=== PATIENT | female | born 1990 | race Caucasian/White ===

== ENCOUNTER 2020-11-02 08:55 | Outpatient (REF) | payer OTHER, SELFPAY ==
[2020-11-02 11:11] LABS: MANUAL DIFF FLAG NO
[2020-11-02 11:37] LABS: Basophils Percent Auto 0.6 % (0-2); Eosinophils Absolute Auto 0.1 X10*3/uL (0.0-0.4); Eosinophils Percent Auto 2.8 % (0-4); Hematocrit 40.6 % (37-47); Imm Gran Abs Auto 0.01 X10*3/uL (0.00-0.03); Imm Gran Pct Auto 0.2 % (0.0-0.4); Lymphocytes Absolute Auto 1.8 X10*3/uL (1.2-4.9); Lymphocytes Percent Auto 35.6 % (20-40); Mean Corpuscular Hemoglobin 30.4 pg (27.0-33.0); Mean Corpuscular Volume 95.1 fL (80-98); Mean Platelet Volume 10.3 fL (9.4-12.3); Monocytes Absolute Auto 0.3 X10*3/uL (0.1-1.2); Monocytes Percent Auto 5.5 % (2-11); Neutrophils Absolute Auto 2.8 X10*3/uL (2.0-8.3); Neutrophils Percent Auto 55.3 % (45-73); Platelet Count 251 X10*3/uL (160-400); Red Blood Count 4.27 X10*6/uL (4.20-5.50); Red Cell Distribution Width 11.8 % (11.0-16.0); White Blood Count 5.1 X10*3/uL (4.8-10.8)
[2020-11-02 11:44] LABS: Alanine Aminotransferase 13 U/L (0-31); Alkaline Phosphatase 44 U/L (39-117); Aspartate Amino Transferase 21 U/L (5-31); Bilirubin Total 0.7 mg/dL (0.0-1.0); Blood Urea Nitrogen 15 mg/dL (9-16); Cholesterol 158 mg/dL; Estimated Glomerular Filt Rate > 60; HDL Cholesterol 52 mg/dL
[2020-11-02 11:47] LABS: Chloride 105 mmol/L (96-108); Sodium 140 mmol/L (135-145)
[2020-11-02 11:49] LABS: Albumin Level 4.5 g/dL (3.5-5.0); Anion Gap 11 (12-20); Carbon Dioxide 28 mmol/L (22-29); Glucose Fasting 81 mg/dL (60-99); LDL Cholesterol Calculated 96 mg/dl; Total Protein 6.9 g/dL (6.5-8.0); Triglycerides 51 mg/dL
[2020-11-02 12:03] LABS: TSH reflex Free T4 2.18 uIU/mL (0.32-4.0)
== END 2020-11-02 08:56 | disposition home or self-care (01) ==
LOC: HO.HMGCLDS 08:55
PROVIDERS: PCP Nurse Practitioner Family; Visit Provider Internal Medicine Medical Oncology
DX: Z01.419 Encounter for gynecological examination (general) (routine) without abnormal findings (principal); C41.9 Malignant neoplasm of bone and articular cartilage, unspecified; L68.0 Hirsutism; F41.9 Anxiety disorder, unspecified; E78.2 Mixed hyperlipidemia; Z97.5 Presence of (intrauterine) contraceptive device
CPT/HCPCS: 36415; 80053; 80061; 84443; 85025; 99395

== ENCOUNTER → 2020-12-07 14:59 | Outpatient (REF) | payer OTHER, SELFPAY ==
--- NOTE | 2020-12-07 15:01 | CA_ITS ---
Transthoracic Echocardiogram Patient (Last, First, Middle): Oliva Hernandez, Gender: Female Date of : 1990 Age: 30 Procedure Date: 12/07/2020 Procedure Type: Transthoracic Echocardiogram Location: OP Height: 162.56 cm Weight: 58.51 kg BSA: 1.62 m2 Heart Rate: bpm BP: 122 / 80 mmHg Deck Worker: BEST Bliss MD: Petey Mora [facility] Black Off Worker: Jas Siddiqi MD Symptoms: R01.1 - Cardiac murmur, unspecified Study Quality: Fair ECG Rhythm: Sinus Conclusions: - Essentially normal study with trace to mild mitral regurgitation Findings Left Ventricle Normal left ventricular size, thickness, and systolic function. The visually estimated ejection fraction is between 60-65%. Diastolic function is normal for age. Right Ventricle Normal right ventricular cavity size and systolic function. Atria Both atria are normal in size. There is no evidence of interatrial shunt. Aortic Valve Normal aortic valve structure and function. There is no aortic valve stenosis. There is no aortic valve regurgitation. Mitral Valve There is mild anterior mitral leaflet thickening. There is mild mitral valve regurgitation. There is no mitral valve stenosis. Pulmonic Valve The pulmonic valve was not well visualized. Tricuspid Valve Likely normal tricuspid valve structure and function. There is trace tricuspid valve regurgitation. The right ventricular systolic pressure is normal. The right ventricular systolic pressure is 20 mmHg. Normal right atrial pressure. There is no evidence of pulmonary hypertension. Great Vessels All visible segments of the aorta are normal in size. The pulmonary artery was not well visualized. Venous The inferior vena cava is normal in size and collapses greater than 50% with inspiration. Pericardium/Pleural There is no evidence of pericardial effusion. Prior Study Comparison No significant change compared to prior study dated: 10/16/2019. Measurements 2D Linear Measurements IVSd: 0.79 0.6-0.9/0.6-1.0 cm LVIDd: 4.33 3.9-5.3/4.2-5.9 cm LVIDd Index: 2.67 2.4-3.2/2.2-3.1 cm/m2 LVIDs: 2.84 2.0-3.6 cm LVPWd: 0.72 0.7-1.1 cm Ao Root: 2.50 2.1-3.5 cm LA Diam: 2.90 2.7-3.8/3.0-4.0 cm LAIDs Index: 1.79 1.5-2.3 cm/m2 LV Mass: 122.18 67-162/88-224 g LV Mass Index: 75.42 43-95/49-115 g/m2 LVOT Diam: 1.90 3.0+(-)1.3 cm Mitral Valve MV Pk E: 1.09 MV PK A: 0.67 MV Decel Time: 296.00 E/A: 1.60 E'Lateral: 17.40 E'Medial: 12.20 E/E' Med: 8.90 E/E' Lat: 6.30 PHT: 87.00 MVA PHT: 2.53 Decel Mason: 3.69 Aortic Valve AoV Pk Oliver: 1.42 AoV Mn Oliver: 1.03 AoV VTI: 0.31 AoV Pk Grad: 8.00 Aov Mn Grad: 5.00 MENDY Cont.VTI: 2.60 LVOT LVOT Pk Oliver: 1.41 LVOT Mn Oliver: 0.88 LVOT VTI: 0.28 LVOT Pk Grad: 8.00 LVOT Mn Grad: 4.00 LVOT Diam: 1.90 LVOT Area: 2.84 Diastolic Function MV Pk E: 1.09 MV Pk A: 0.67 E/A: 1.60 E'Medial: 12.20 E/E' Med: 8.90 E' Laterial: 17.40 E/E' Lat: 6.30 Tricuspid Valve TR Pk Oliver: 2.06 TR Pk Grad: 17.00 RA Press: 3.00 RVSP: 20.00 Great Vessels Aorta Ao Root-2D: 2.50 2.0-3.7 cm Ao Asc: 2.60 2.1-3.4 cm Ao Arch: 2.40 Updated in Other Vendor System with Status of Final Jas Siddiqi MD electronically signed on 12/08/2020 5:29:21 PM with status of Final
== END ==
LOC: HO.CARD 14:59
PROVIDERS: Visit Provider Nurse Practitioner Family
DX: R01.1 Cardiac murmur, unspecified (principal)
CPT/HCPCS: 93306

== ENCOUNTER 2022-01-22 15:05 | Outpatient (REF) | payer OTHER, SELFPAY ==
--- NOTE | ~2022-01-22 | US_ITS ---
EXAMINATION: US VENOUS ULTRASOUND WITH DOPPLER LOWER EXTREMITY, LEFT CLINICAL INFORMATION: Edema COMPARISON: None TECHNIQUE: Ultrasound of the deep veins is performed from the hip to the calf with compression sonography and color and pulse Doppler assessment. Spectral analysis with color-flow imaging is performed. FINDINGS: There is normal venous compression and respiratory variation and augmented flow. The visualized common femoral vein, superficial femoral vein, profunda femoral vein, popliteal vein, and the trifurcation region shows no evidence of deep venous thrombosis. There is no significant popliteal fossa cyst. There is a collection deep to the subcutaneous fat overlying the musculature of the proximal/mid thigh site of the previous surgical procedure. If the patient's symptoms persist, followup ultrasound in 5 days 7 days might be of value to exclude proximal propagation from a non-visualized calf vein. US/US venous duplex LE LT IMPRESSION: No DVT demonstrated in the left lower extremity.
== END 2022-01-22 15:06 | disposition home or self-care (01) ==
LOC: HO.US 15:05
PROVIDERS: Visit Provider Nurse Practitioner Family
DX: R60.0 Localized edema (principal)
CPT/HCPCS: 93971

== ENCOUNTER → 2022-01-29 09:32 | Outpatient (BNVA) | payer OTHER, SELFPAY | PROVIDERS: PCP Nurse Practitioner Family; Visit Provider Surgery Vascular Surgery | DX: I83.12 Varicose veins of left lower extremity with inflammation (principal) ==

== ENCOUNTER 2022-03-14 07:34 | Outpatient (REF) | payer OTHER, SELFPAY ==
[2022-03-14 11:23] LABS: MANUAL DIFF FLAG NO
[2022-03-14 11:27] LABS: Appearance Urine CLEAR; Color Urine YELLOW; Glucose Urine UA NEG (NEG); Leukocyte Esterase Urine TRACE (NEG); Nitrite Urine NEG (NEG); PH 6.5 (5.0-8.0); Urine Blood NEG (NEG); Urine Ketones NEG (NEG); Urine Protein NEG (NEG-TRACE)
[2022-03-14 11:32] LABS: Basophils Percent Auto 0.6 % (0-2); Eosinophils Absolute Auto 0.2 X10*3/uL (0.0-0.4); Eosinophils Percent Auto 2.9 % (0-4); Hematocrit 40.9 % (37.0-47.0); Hemoglobin 13.4 g/dl (12.0-16.0); Imm Gran Abs Auto 0.01 X10*3/uL (0.00-0.03); Imm Gran Pct Auto 0.2 % (0.0-0.4); Lymphocytes Percent Auto 39.3 % (20-40); Mean Corpuscular HGB Conc 32.8 g/dl (31.0-35.0); Mean Corpuscular Hemoglobin 30.2 pg (27.0-33.0); Mean Corpuscular Volume 92.3 fL (80.0-98.0); Mean Platelet Volume 9.9 fL (9.4-12.3); Monocytes Absolute Auto 0.4 X10*3/uL (0.1-1.2); Monocytes Percent Auto 7.8 % (2-11); Neutrophils Absolute Auto 2.5 x10*3/uL (2.0-8.3); Neutrophils Percent Auto 49.2 % (45-73); Platelet Count 270 X10*3/uL (160-400); Red Blood Count 4.43 X10*6/uL (4.20-5.50); White Blood Count 5.1 X10*3/uL (4.8-10.8)
[2022-03-14 11:48] LABS: Bacteria Urine TRACE /LPF; RBC Urine 0 /HPF (0); Squamous Epithelial Cell Urine 3+ /LPF; WBC Urine 0-2 /HPF (0-4)
[2022-03-14 11:59] LABS: Alanine Aminotransferase 14 U/L (0-31); Albumin Level 4.4 g/dL (3.5-5.0); Alkaline Phosphatase 45 U/L (39-117); Anion Gap 13 (12-20); Aspartate Amino Transferase 18 U/L (5-31); Bilirubin Total 0.6 mg/dL (0.0-1.0); Blood Urea Nitrogen 14 mg/dL (9-16); Calcium 9.3 mg/dL (8.4-10.2); Carbon Dioxide 28 mmol/L (22-29); Chloride 104 mmol/L (96-108); Cholesterol 180 mg/dL; Estimated Glomerular Filt Rate > 60; Glucose Fasting 88 mg/dL (60-99); HDL Cholesterol 57 mg/dL; LDL Cholesterol Calculated 110 mg/dl; Potassium 3.8 mmol/L (3.3-5.1); Sodium 141 mmol/L (135-145); Total Protein 6.9 g/dL (6.5-8.0); Triglycerides 66 mg/dL
[2022-03-14 12:07] LABS: TSH reflex Free T4 2.43 uIU/mL (0.32-4.0)
== END 2022-03-14 07:35 | disposition home or self-care (01) ==
LOC: HO.HMGCLDS 07:34
PROVIDERS: Visit Provider Nurse Practitioner Family
DX: Z00.00 Encounter for general adult medical examination without abnormal findings (principal)
CPT/HCPCS: 36415; 80053; 80061; 81001; 84443; 85025

== ENCOUNTER 2022-05-02 08:01 | Outpatient (REF) | payer OTHER, SELFPAY ==
--- NOTE | ~2022-05-02 | US_ITS ---
EXAMINATION: US LOWER EXTREMITY VENOUS (REFLUX EXAM), BILATERAL CLINICAL INDICATION: This a 31-year-old female with venous insufficiency and varicose veins. COMPARISON: None. TECHNIQUE: Color flow triplex imaging and compression Doppler was performed to evaluate both the deep and the superficial systems bilaterally. To evaluate the superficial system, the examination was performed in the upright position. Color-flow Doppler ultrasound and compression ultrasound were utilized. In addition, maneuvers were utilized to demonstrate reflux. FINDINGS: 1. DEEP VENOUS ULTRASOUND OF THE RIGHT LOWER EXTREMITY: Common Femoral Vein: Compressible, normal respiratory variation and augmented flow. Femoral vein: Compressible, normal color flow and augmentation. Popliteal Vein: Compressible, normal augmentation. Deep Reflux: There is no evidence of reflux in the deep system in either the common femoral vein or the popliteal vein. There is no evidence of a Castro's cyst. 2. SUPERFICIAL ULTRASOUND WITH DOPPLER OF RIGHT LOWER EXTREMITY: GREAT SAPHENOUS VEIN: Saphenofemoral Junction: 0.8 cm. No reflux is seen. The proximal thigh vein segment measures 0.5 cm with reflux time is 1159 ms. Mid Thigh: 0.4 cm. The reflux time is 680 ms. Above Knee: 0.4 cm. The reflux time is 2972 ms. Below Knee: 0.3 cm. The reflux time is 2292 ms. Mid Calf: 0.4 cm. The reflux time is 2880 ms. Ankle: 0.2 cm. There is no reflux. GSV REFLUX: There is reflux present in the great saphenous vein for DUPLICATED GREAT SAPHENOUS VEIN: There is a 0.2 cm duplicated lateral great saphenous vein without reflux. SMALL SAPHENOUS VEIN: Proximal: 0.1 cm Distal: 0.1 cm SSV REFLUX: No evidence of reflux. VEIN OF GIACOMINI: None Imaged. 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 VARICOSITIES: There are 0.3 cm mid calf varicose veins with greater than 2 seconds of reflux. 3. DEEP VENOUS ULTRASOUND OF THE LEFT LOWER EXTREMITY: Common Femoral Vein: Compressible, normal respiratory variation and augmented flow. Femoral Vein: Compressible, normal color flow and augmentation. Popliteal Vein: Compressible, normal augmentation. Deep Reflux: There is no evidence of reflux in the deep system in either the common femoral vein or the popliteal vein. There is no evidence of a Castro's cyst. 4. SUPERFICIAL ULTRASOUND WITH DOPPLER OF LEFT LOWER EXTREMITY: GREAT SAPHENOUS VEIN: Saphenofemoral Junction: 0.6 cm. There is no reflux. Mid Thigh: 0.3 cm Above Knee: 0.2 cm Below Knee: 0.2 cm Mid Calf: 0.1 cm. There is no reflux at this level and above. Ankle: 0.1 cm. The reflux time is 1007 and 64 ms per GSV REFLUX: There is only distal reflux present. DUPLICATED GREAT SAPHENOUS VEIN: There is a 0.3 cm duplicated lateral great saphenous vein without reflux. SMALL SAPHENOUS VEIN: Proximal: 0.2 cm Distal: 0.1 cm SSV REFLUX: No evidence of reflux. VEIN OF GIACOMINI: None Imaged. PERFORATORS: None Imaged VARICOSITIES: None Imaged US/US venous duplex LE BI IMPRESSION: 1. There is a patent right great saphenous vein with reflux present as described. 2. There is a patent right small saphenous vein without reflux. 3. There are 0.3 cm varicose veins in the right calf with reflux. 4. There is a patent left great saphenous vein with only distal reflux. 5. There is a patent left small saphenous vein without evidence of reflux. 6. Known left-sided varicose veins were imaged.
== END 2022-05-02 08:02 | disposition home or self-care (01) ==
LOC: HO.US 08:01
PROVIDERS: Visit Provider Nurse Practitioner Family
DX: I83.12 Varicose veins of left lower extremity with inflammation (principal)
CPT/HCPCS: 93970

== ENCOUNTER 2022-07-20 08:28 | Outpatient (REF) | payer OTHER, SELFPAY ==
--- NOTE | ~2022-07-20 | US_ITS ---
EXAMINATION: US THYROID CLINICAL INFORMATION: Nontoxic multinodular goiter. COMPARISON: Ultrasound soft tissue head/neck thyroid dated 10/06/2019. TECHNIQUE: Linear transducer grayscale and color Doppler examination with attention to the region of the thyroid. FINDINGS: SIZE: Measurements of the thyroid lobes and nodules are given in sagittal, anteroposterior and transverse dimensions respectively. Right Thyroid Lobe: 4.83 x 1.66 x 1.73 cm, volume 7.24 mL. Previously 4.93 x 1.65 x 1.74 cm, volume 7.40 mL. Parenchyma: The gland echotexture is heterogeneous. Thyroid vascularity is increased. Left Thyroid Lobe: 5.08 x 1.19 x 1.45 cm, volume 4.58 mL. Previously 4.40 x 1.49 x 1.54 cm, volume 5.28 mL. Parenchyma: The gland echotexture is heterogeneous. Thyroid vascularity is increased. Isthmus: 0.66 cm in maximum AP dimension. Previously 0.67 cm. Estimated total number of nodules greater than or equal to 1 cm: 0. Beater Room Supervisor nodules are described as follows: 1. Location: Isthmus. Size: 0.73 x 0.45 x 0.51 cm, volume 0.09 mL. Previously: 0.60 x 0.56 x 0.54 cm, volume 0.09 mL. Nodule characteristics: Composition: Solid/almost completely solid (2). Echogenicity: Hypoechoic (2). Shape: Not taller than wide (0). Margins: Ill-defined (0). Echogenic Foci: None (0). ACR TI-RADS total points: 4 ACR TI-RADS category: 4 Significant change in size (>/= 20% in 2 dimensions and minimal increase of 2 mm or 50% or greater increase in volume): No Change in features: No Change in ACR TI-RADS risk category: Not applicable. NODES: No lymphadenopathy is seen in the tissue surrounding the thyroid gland. US/US thyroid IMPRESSION: Again noted heterogeneous and hypervascular thyroid limiting assessment of small nodules and parenchymal details. Accounting for this limitation, a 0.7 cm nodule in the isthmus, TR 4, is not significantly changed when compared to 09/26/2019, and according to the ACR guidelines below, no further evaluation of this nodule is recommended. However, given background of significant heterogeneity, continue to follow up by imaging is recommended following clinical guidelines. ACR TI-RADS RECOMMENDATION REFERENCE: Ultrasound-guided fine-needle aspiration, followup ultrasound, no further follow up. * TR1 (0 point) and TR 2 (2 points): No FNA or follow up * TR3 (3 points): FNA if more than or equal to 2.5 cm in maximum dimension, followup ultrasound in 1, 3 and 5 years if 1.5 to 2.4 cm in maximum dimension. * TR4 (4-6 points): FNA if more than or equal to 1.5 cm in maximum dimension, followup ultrasound in 1, 2, 3 and 5 years if 1 to 1.4 cm in maximum dimension. * TR5 (more than or equal to 7 points): FNA if more than or equal to 1 cm in maximum dimension, followup ultrasound every year for 5 years if 0.5 to 0.9 cm in maximum dimension. * TR3, TR4 or TR5 nodules that are below the size threshold for follow up receive no follow up.
== END 2022-07-20 08:29 | disposition home or self-care (01) ==
LOC: HO.HMGCX 08:28
PROVIDERS: PCP Nurse Practitioner Family; Visit Provider Internal Medicine Endocrinology, Diabetes & Metabolism
DX: E04.2 Nontoxic multinodular goiter (principal)
CPT/HCPCS: 76536

== ENCOUNTER 2022-11-28 08:20 | Outpatient (REF) | payer OTHER, SELFPAY ==
[2022-11-28 11:15] LABS: MANUAL DIFF FLAG NO
[2022-11-28 11:19] LABS: Basophils Percent Auto 0.6 % (0-2); Eosinophils Absolute Auto 0.1 X10*3/uL (0.0-0.4); Eosinophils Percent Auto 2.6 % (0-4); Hematocrit 41.3 % (37.0-47.0); Hemoglobin 13.6 g/dl (12.0-16.0); Immature Retic Fraction 5.1 % (3.0-15.9); Lymphocytes Absolute Auto 1.8 X10*3/uL (1.2-4.9); Lymphocytes Percent Auto 39.1 % (20-40); Mean Corpuscular HGB Conc 32.9 g/dl (31.0-35.0); Mean Corpuscular Hemoglobin 30.4 pg (27.0-33.0); Mean Corpuscular Volume 92.2 fL (80.0-98.0); Monocytes Absolute Auto 0.4 X10*3/uL (0.1-1.2); Monocytes Percent Auto 7.7 % (2-11); Neutrophils Absolute Auto 2.3 x10*3/uL (2.0-8.3); Platelet Count 293 X10*3/uL (160-400); Red Blood Count 4.48 X10*6/uL (4.20-5.50); Retic HGB Equivalent 36.4 pg (30.0-35.0); Reticulocyte Percent 0.9 % (0.5-1.8); White Blood Count 4.7 X10*3/uL (4.8-10.8)
[2022-11-28 11:43] LABS: Appearance Urine Clear; Color Urine Yellow; Glucose Urine UA Negative (Negative); Leukocyte Esterase Urine Negative (Negative); Nitrite Urine Negative (Negative); PH 6.5 (5.0-9.0); Urine Blood Negative (Negative); Urine Ketones Negative (Negative); Urine Protein Negative (Neg-Trace)
[2022-11-28 11:56] LABS: Alanine Aminotransferase 11 U/L (0-31); Albumin Level 4.4 g/dL (3.5-5.0); Alkaline Phosphatase 47 U/L (39-117); Anion Gap 13 (12-20); Aspartate Amino Transferase 21 U/L (5-31); Bilirubin Total 0.7 mg/dL (0.0-1.0); Blood Urea Nitrogen 16 mg/dL (9-16); Calcium 9.6 mg/dL (8.4-10.2); Carbon Dioxide 26 mmol/L (22-29); Chloride 107 mmol/L (96-108); Estimated Glomerular Filt Rate > 60; Glucose Random 65 mg/dL (60-115); Iron 95 mcg/dL (30-160); Percent Iron Saturation 40 % (15-50); Potassium 4.4 mmol/L (3.3-5.1); Sodium 142 mmol/L (135-145); Total Iron Binding Capacity 235 mcg/dL (228-428); Total Protein 6.7 g/dL (6.5-8.0); Unsaturated Iron Binding 140 ug/dL
[2022-11-28 12:07] LABS: Ferritin 45 ng/mL (10-122); Folate 16.4 ng/mL (> or = 4.0); TSH reflex Free T4 2.45 uIU/mL (0.32-4.0); Vitamin B12 511 pg/mL (200-900)
== END 2022-11-28 08:21 | disposition home or self-care (01) ==
LOC: HO.HMGCLDS 08:20
PROVIDERS: PCP Nurse Practitioner Family; Visit Provider Nurse Practitioner Family
DX: R53.83 Other fatigue (principal)
CPT/HCPCS: 36415; 80053; 81003; 82607; 82728; 82746; 83540; 84443; 85025; 85045

== ENCOUNTER 2023-03-07 07:29 | Outpatient (AMB) | payer OTHER, SELFPAY ==
[2023-03-07 07:37] VITALS: BP 120/74; PULSE 94; O2SAT 100; BMI 22.2
--- NOTE | 2023-03-07 07:37 | MHC.PC.OV ---
Vital Signs 03/07/23 07:37 Height 5 ft 4 in Weight 129 lb 6 oz BMI 22.2 BP 120/74 Blood Pressure Location Rt brachial Position Sitting Pulse 94 Pulse Source Pulse Oximeter Pulse Oximetry (%) 100 Oxygen Delivery Method Room Air Intake Visit Reasons: Annual Appointment Allergies No Known Allergies [No Known Allergies*] Allergy (Verified 03/07/23 07:48) Medication List - Last Reconciled 03/07/23 by MEKA Jackson dextroamphetamine-amphetamine 10 mg 10 mg PO DAILY PRN dextroamphetamine-amphetamine 25 mg ER 25 mg PO QAM iron fum,ct-wkocl-Aqyoj,C no.9 125 mg iron- 1 mg (Folivane-Plus) 1 cap PO DAILY levonorgestrel (Mirena) intrauterine multivitamin with iron (Daily Multiple Vitamins with Iron tablet) 1 tab PO DAILY ondansetron HCl 4 mg PO Q8H 30 days Tobacco use date assessed: 03/07/23 HPI Annual Appointment HPI Details Pt is here for a PE. Will order labs. 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 [facility] Medical History (Updated 11/21/22 @ 07:33 by MEKA Jackson) Anxiety IBS (irritable bowel syndrome) Mixed hyperlipidemia Multinodular goiter (nontoxic) Osteogenic sarcoma Surgical History History of biopsy (12/12/21) History of surgery History of surgery History of surgery Family History Father HTN (hypertension) Mother Glaucoma Anxiety Maternal Grandfather No problems noted. Maternal Grandmother Alzheimer's disease Dementia Paternal Grandfather Stroke Paternal Grandmother Stroke Brother No problems noted. Social History Housing: House Alcohol intake: current Alcohol intake frequency: holidays/special occasions only Patient Tobacco Use Status: Never used Tobacco e-Cigarette/Vaping Use: Currently Using (thc) Second Hand Smoke Exposure: No service: No Current occupational status: employed Current occupation: [employer] Current occupational exposures/hazards: Yes Cognitive needs: No Hearing needs: No Vision needs: No Questionnaire Thrive Questionnaire Date Thrive assessed: 02/28/22 I am a: Patient What is your living situation today?: I have a steady place to live Within the past 12 months, did the food you bought not last and you didn't have the money to get more?: Never true Within the past 12 months, did you worry whether your food would run out before you got money to buy more?: Never true AUDIT C Alcohol Use Questionnaire (AUDIT-C) 1. How often do you have a drink containing alcohol?: Monthly or less 2. How many drinks containing alcohol do you have on a typical day when you are drinking?: 1 or 2 3. How often do you have six or more drinks on one occasion?: Never Total Score: 1 MINA-7 AMB Questionnaire MINA-7 Date MINA - 7 assessed: 02/28/22 Feeling nervous, anxious, or on edge: 3 = Nearly every day Not being able to stop or control worryin = Several days Worrying too much about different things: 3 = Nearly every day Trouble relaxin = Nearly every day Being so restless that it is hard to sit still: 3 = Nearly every day Becoming easily annoyed or irritable: 1 = Several days Feeling afraid as if something awful might happen: 0 = Not at all Total MINA-7 score (0-4 normal; 5-9 mild; 10-14 moderate; 15-21 severe): 14 Source: Developed by Drs. Gurmeet Linder, Indai Gates, Chris Choudhury and colleagues, with an educational ruby from [employer]. Review of Systems Const Denies chills and Denies fever(s) Eyes Denies blurry vision ENT Denies vertigo, Denies dizziness and Denies sore throat Card Denies chest pain at rest, Denies chest pain with activity, Denies diaphoresis, Denies dyspnea and Denies dyspnea on exertion Resp Denies cough, Denies dyspnea, Denies dyspnea on exertion and Denies wheezing GI Denies abdominal pain, Denies melena, Denies hematochezia, Denies constipation, Denies diarrhea and Denies loose stools Denies hematuria Musc Denies numbness and Denies tingling Skin/Breast Denies lesions Neuro Denies vertigo, Denies dizziness, Denies numbness and Denies tingling Psych Denies anxiety, Denies depression, Denies homicidal ideation, Denies suicidal ideation and Denies other (substance abuse) Aller/Immun Denies wheezing Physical exam (Primary Care) Vital Signs: Last Vital Signs Pulse 94 03/07/23 07:37 BP 120/74 03/07/23 07:37 Pulse Ox 100 03/07/23 07:37 Oxygen Delivery Method Room Air 03/07/23 07:37 BMI result Body Mass Index 22.2 Tobacco/Smoking Status: Tobacco use Status Tobacco use date assessed 03/07/23 03/07/23 07:50 Patient Tobacco Use Status Never used Tobacco 03/07/23 07:50 e-Cigarette/Vaping Use Currently Using (thc) 03/07/23 07:50 Thrive Assessment: Date of Thrive Assessment Date Thrive assessed 02/28/22 03/07/23 07:50 Const General: cooperative Nutritional Appearance: well nourished Orientation/consciousness: patient oriented x3 HENMT Head: Yes normal to inspection, Yes normocephalic and Yes atraumatic Ears: TM's normal bilaterally Eyes General: appearance normal, both eyes and all related structures Alignment and Position: alignment normal and position normal Neck Neck: Yes normal visual inspection and Yes no lymphadenopathy Thyroid: Thyroid normal Resp Effort & Inspection: normal respiratory effort Auscultation: clear to auscultation bilaterally Cardio Rate: regular rate Rhythm: regular rhythm Heart sounds: S1 normal heart sound present, S2 normal heart sound present and Murmur heart sound present systolic GI Palpation (GI): Soft to palpation and nontender Auscultation: normal bowel sounds Skin Rashes: no rashes Neuro General: patient oriented x3, moves all extremities, no focal motor deficits and deep tendon reflexes 2+ bilaterally Romberg Test: Negative Psych Appearance: grossly normal Mental Status: mental status grossly normal Speech and movement: Normal speech and movement present Affect: normal affect Attitude: cooperative Thought process: Normal thought process present Thought content: Normal thought content present Insight: Good insight present (Psych) Judgement: Good judgement present (Psych) Assessment and Plan Assessment & Plan (1) Physical exam: Code(s): Z00.00 - Encounter for general adult medical examination without abnormal findings Plan: Labs ordered Plan The patient agreed to the use of a medical assisting instructor for this encounter. Scribed for MEKA Aleman by Floresita Armin, medical assisting instructor, on 03/07/2023 at 07:55 EST. Orders: Orders Comprehensive [place]. Panel Fast Today Z00.00 - Encounter for general adult medical examination without abnormal findings Lipid Panel Today Z00.00 - Encounter for general adult medical examination without abnormal findings TSH reflex Free T4 Today Z00.00 - Encounter for general adult medical examination without abnormal findings Complete Blood Count Auto Diff Today Z00.00 - Encounter for general adult medical examination without abnormal findings UA CC w/rflx Micro + Cult Today Z00.00 - Encounter for general adult medical examination without abnormal findings Coding Level of Care Code Est Pt Prev Care 18-39y(91152) Diagnoses Physical exam Z00.00
== END 2023-03-07 08:04 | disposition home or self-care (01) ==
PROVIDERS: Visit Provider Nurse Practitioner Family
DX: Z00.00 Encounter for general adult medical examination without abnormal findings (principal)
CPT/HCPCS: 99395

== ENCOUNTER 2023-05-03 08:30 | Outpatient (REF) | payer OTHER, SELFPAY ==
[2023-05-03 11:32] LABS: MANUAL DIFF FLAG NO
[2023-05-03 11:35] LABS: Appearance Urine Clear; Color Urine Yellow; Glucose Urine UA Negative (Negative); Leukocyte Esterase Urine Negative (Negative); Nitrite Urine Negative (Negative); Specific Gravity - Urine 1.025 (1.005-1.025); Urine Blood Negative (Negative); Urine Ketones Negative (Negative); Urine Protein Negative (Neg-Trace)
[2023-05-03 11:46] LABS: Basophils Percent Auto 0.5 % (0-2); Eosinophils Absolute Auto 0.1 X10*3/uL (0.0-0.4); Eosinophils Percent Auto 2.4 % (0-4); Hematocrit 42.5 % (37.0-47.0); Hemoglobin 13.8 g/dl (12.0-16.0); Imm Gran Abs Auto 0.01 X10*3/uL (0.00-0.03); Imm Gran Pct Auto 0.2 % (0.0-0.4); Lymphocytes Absolute Auto 1.8 X10*3/uL (1.2-4.9); Lymphocytes Percent Auto 31.4 % (20-40); Mean Corpuscular HGB Conc 32.5 g/dl (31.0-35.0); Mean Corpuscular Hemoglobin 30.5 pg (27.0-33.0); Mean Platelet Volume 12.7 fL (9.4-12.3); Monocytes Absolute Auto 0.4 X10*3/uL (0.1-1.2); Neutrophils Absolute Auto 3.5 x10*3/uL (2.0-8.3); Neutrophils Percent Auto 59.5 % (45-73); Platelet Count 282 X10*3/uL (160-400); Red Blood Count 4.52 X10*6/uL (4.20-5.50); Red Cell Distribution Width 11.8 % (11.0-16.0); White Blood Count 5.8 X10*3/uL (4.8-10.8)
[2023-05-03 13:25] LABS: Alanine Aminotransferase 15 U/L (0-31); Albumin Level 4.2 g/dL (3.5-5.0); Alkaline Phosphatase 42 U/L (39-117); Anion Gap 10 (12-20); Aspartate Amino Transferase 21 U/L (5-31); Bilirubin Total 0.8 mg/dL (0.0-1.0); Blood Urea Nitrogen 18 mg/dL (9-16); Calcium 9.3 mg/dL (8.4-10.2); Carbon Dioxide 28 mmol/L (22-29); Chloride 106 mmol/L (96-108); Cholesterol 151 mg/dL; Estimated Glomerular Filt Rate > 60; Glucose Fasting 84 mg/dL (60-99); HDL Cholesterol 55 mg/dL; LDL Cholesterol Calculated 88 mg/dl; Potassium 4.2 mmol/L (3.3-5.1); Sodium 140 mmol/L (135-145); Triglycerides 42 mg/dL
[2023-05-03 13:41] LABS: TSH reflex Free T4 1.82 uIU/mL (0.32-4.0)
== END 2023-05-03 08:31 | disposition home or self-care (01) ==
LOC: HO.HMGCLDS 08:30
PROVIDERS: PCP Nurse Practitioner Family; Visit Provider Nurse Practitioner Family
DX: Z00.00 Encounter for general adult medical examination without abnormal findings (principal); L68.0 Hirsutism; R53.83 Other fatigue; Z13.29 Encounter for screening for other suspected endocrine disorder
CPT/HCPCS: 36415; 80053; 80061; 81003; 84443; 85025

== ENCOUNTER 2023-05-06 16:26 | Outpatient (REF) | payer OTHER, SELFPAY | END 2023-05-06 16:27 | disposition home or self-care (01) | LOC: HO.MAMMO 16:26 | PROVIDERS: PCP Nurse Practitioner Family; Visit Provider Nurse Practitioner Family | DX: Z12.31 Encounter for screening mammogram for malignant neoplasm of breast (principal) | CPT/HCPCS: 77063; 77067 ==

== ENCOUNTER → 2023-05-06 16:30 | Outpatient (BNV) | payer OTHER, SELFPAY | PROVIDERS: PCP Nurse Practitioner Family; Visit Provider Radiology Diagnostic Radiology | DX: Z12.31 Encounter for screening mammogram for malignant neoplasm of breast (principal) | CPT/HCPCS: 77063; 77067 ==

== ENCOUNTER 2023-10-01 13:55 | Outpatient (REF) | payer OTHER, SELFPAY ==
[2023-10-05 09:29] LABS: HPV mRNA E6/E7 rflx Not Detected (Not Detected)
== END 2023-10-01 13:56 | disposition home or self-care (01) ==
LOC: HO.LNP 13:55
PROVIDERS: PCP Nurse Practitioner Family; Visit Provider Advanced Practice Midwife
DX: Z01.419 Encounter for gynecological examination (general) (routine) without abnormal findings (principal); Z11.51 Encounter for screening for human papillomavirus (HPV)
CPT/HCPCS: 87624; 88142; 99395

== ENCOUNTER 2023-10-01 13:55 | Outpatient (AMB) | payer OTHER, SELFPAY ==
--- NOTE | 2023-10-01 14:11 | MHC.OFFVIS ---
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 Doing well with no concerns. She tries to eat healthy and stays active with exercise. Mirena inserted November 2019. Currently is sexually active. She denies vaginal itching and irritation. STI screening offered; she declined. Denies family history of breast, ovarian or colon cancer. Last pap smear 2019, unsatisfactory. [facility] Medical History Multinodular goiter (nontoxic) Anxiety Mixed hyperlipidemia IBS (irritable bowel syndrome) Osteogenic sarcoma Surgical History History of biopsy (12/12/21) History of surgery History of surgery History of surgery Family History Father HTN (hypertension) Mother Glaucoma Anxiety Maternal Grandfather No problems noted. Maternal Grandmother Alzheimer's disease Dementia Paternal Grandfather Stroke Paternal Grandmother Stroke Brother No problems noted. Social History Housing: House Alcohol intake: current Alcohol intake frequency: holidays/special occasions only Patient Tobacco Use Status: Never used Tobacco e-Cigarette/Vaping Use: Currently Using (thc) Second Hand Smoke Exposure: No service: No Current occupational status: employed Current occupation: [employer] Current occupational exposures/hazards: Yes Cognitive needs: No Hearing needs: No Vision needs: No Female Reproductive History Menstrual Age of Menarche: 11 Duration of menses: 3-5 days control method: progestin IUCD (Mirena 12/10/2019) Total pregnancies: 0 Date of last pap smear: 10/07/19 (unsatisfactory -HPV) Date of Mammogram: 05/06/23 Review of Systems Const All systems reviewed & are unremarkable except as noted in HPI and below Reports as per HPI Eyes Reports no additional complaints ENT Reports no additional complaints Card Reports no additional complaints Resp Reports no additional complaints GI Reports as per HPI and Reports no additional complaints Reports as per HPI Musc Reports no additional complaints Skin/Breast Reports as per HPI Neuro Reports no additional complaints Psych Reports no additional complaints Endo Reports no additional complaints Rafita/Lymph Reports no additional complaints Aller/Immun Reports no additional complaints Physical Exam Vital Signs: Last Vital Signs BP 130/70 10/01/23 14:15 BMI result Body Mass Index 22.1 Const General: cooperative, healthy appearing, no acute distress, well developed and alert Orientation/consciousness: patient oriented x3 HEENT Head: Yes normal to inspection Eyes General: appearance normal, both eyes and all related structures Neck Neck: Yes normal visual inspection Thyroid: Thyroid normal Chest Chest palpation & inspection: normal inspection of the chest and other (no puckering, dimpling, peau de orange, retraction, discharge, masses) Breast/axilla inspection: normal inspection of the breasts Breast/axilla palpation: normal palpation of the breasts Resp Effort & Inspection: normal respiratory effort GI Inspection: Yes normal to inspection Palpation (GI): Soft to palpation Rectal Exam - Female: deferred General: Yes bladder normal to palpation External Female Exam: normal external appearance and normal appearance of the urethra Speculum Exam - Vagina: normal appearance of the vagina, normal palpation and normal vaginal discharge Speculum Exam - Cervix: normal appearance of the cervix, normal palpation and Other cervical findings present (IUD strings present) Bimanual exam- vagina & uterus: normal bimanual exam, normal palpation, uterine size normal, bladder normal to palpation, normal palpation and non-tender Bimanual Exam- Adnexa, other: no masses Skin General skin exam: no rashes or lesions noted Rashes: no rashes Neuro General: patient oriented x3 Cognition (Neuro): normal cognition Extrem General: Yes normal to inspection Psych Attitude: cooperative Thought process: Normal thought process present Assessment & Plan Assessment & Plan (1) Encounter for well woman exam with routine gynecological exam: Code(s): Z01.419 - Encounter for gynecological examination (general) (routine) without abnormal findings Plan Discussed: Current recommendations for pap smears per ASCCP guidelines. Breast awareness and periodic breast exams. Maintain a healthy lifestyle including a well balanced diet and routine exercise. All of her questions and concerns were addressed to the best of my ability. 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 This note is constructed using voice recognition software. While every effort has been made to ensure accuracy, hand coper errors may have been included. Orders: Orders Pap Smear Today Z12.4 - Encounter for screening for malignant neoplasm of cervix Coding Level of Care Code Est Pt Prev Care 18-39y(65699) Diagnoses Encounter for well woman exam with routine gynecological exam Z01.419
[2023-10-01 14:15] VITALS: BP 130/70; BMI 22.1
== END 2023-10-01 14:53 | disposition home or self-care (01) ==
LOC: HO.HWS 13:55
PROVIDERS: PCP Nurse Practitioner Family; Visit Provider Advanced Practice Midwife
DX: Z01.419 Encounter for gynecological examination (general) (routine) without abnormal findings (principal)
CPT/HCPCS: 99395

== ENCOUNTER 2023-10-04 08:50 | Outpatient (AMB) | payer OTHER, SELFPAY ==
--- NOTE | 2023-10-04 10:22 | AM.OFFVISNUR ---
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
== END 2023-10-04 09:42 | disposition home or self-care (01) ==
PROVIDERS: PCP Nurse Practitioner Family; Visit Provider Nurse Practitioner Family
DX: Z23 Encounter for immunization (principal)
CPT/HCPCS: 90471; 90715

== ENCOUNTER → 2024-03-05 14:45 | Outpatient (REF) | payer OTHER, SELFPAY ==
--- NOTE | 2024-03-05 14:47 | CA_ITS ---
Transthoracic Echocardiogram Patient (Last, First, Middle): Oliva Hernandez, Gender: Female Date of : 1990 Age: 33 Procedure Date: 03/05/2024 Procedure Type: Transthoracic Echocardiogram Location: OP Height: 162. cm Weight: 58.97 kg BSA: 1.62 m2 Heart Rate: 61 bpm BP: 112 / 80 mmHg Convenience Store Clerk: RADHA Referring MD: Petey Mora [facility] Symptoms: R01.1 - Cardiac murmur, unspecified Study Quality: Fair ECG Rhythm: Sinus Conclusions: - The left ventricular systolic function is normal. The calculated ejection fraction is 71% by biplane method. - No obvious valvular pathology seen on this study. Findings Left Ventricle Normal left ventricular cavity size. There is normal left ventricular wall thickness. The left ventricular systolic function is normal. The calculated ejection fraction is 71% by biplane method. There is no evidence of regional wall motion abnormalities. Diastolic function is normal for age. LV peak GLS -23.4%. Right Ventricle Normal right ventricular cavity size and systolic function. Atria Both atria are normal in size. Aortic Valve There is a normal trileaflet aortic valve. There is no aortic valve stenosis. There is no aortic valve regurgitation. Mitral Valve The mitral valve appears normal. There is no mitral valve stenosis. Trace to mild mitral regurgitation. Pulmonic Valve The pulmonic valve is likely normal. Tricuspid Valve Normal tricuspid valve structure. There is trace tricuspid valve regurgitation. There is no evidence of pulmonary hypertension. Great Vessels The asc aorta is normal in size. Venous The inferior vena cava is normal in size and collapses greater than 50% with inspiration. Pericardium/Pleural There is no evidence of pericardial effusion. Prior Study Comparison No significant change compared to prior study dated: 12/07/2020. Recommendations, Care & Conclusions No obvious valvular pathology seen on this study. Measurements 2D Linear Measurements IVSd: 0.81 0.6-0.9/0.6-1.0 cm LVIDd: 3.89 3.9-5.3/4.2-5.9 cm LVIDd Index: 2.40 2.4-3.2/2.2-3.1 cm/m2 LVIDs: 2.21 2.0-3.6 cm LVPWd: 0.65 0.7-1.1 cm LA Diam: 2.60 2.7-3.8/3.0-4.0 cm LAIDs Index: 1.60 1.5-2.3 cm/m2 LV Mass: 97.77 67-162/88-224 g LV Mass Index: 60.35 43-95/49-115 g/m2 LVOT Diam: 1.70 3.0+(-)1.3 cm 2D Systolic Function EF 4C: 67.30 >55% EF 2C: 76.40 >55% EF BiP: 70.70 >55% Mitral Valve MV Pk E: 1.05 MV PK A: 0.67 MV Decel Time: 226.00 E/A: 1.60 E'Lateral: 18.20 E'Medial: 10.80 E/E' Med: 9.70 E/E' Lat: 5.80 PHT: 66.00 MVA PHT: 3.33 Decel [place]: 4.63 Aortic Valve AoV Pk Oliver: 1.49 AoV Mn Oliver: 1.05 AoV VTI: 0.32 AoV Pk Grad: 9.00 Aov Mn Grad: 5.00 MENDY Cont.VTI: 2.15 LVOT LVOT Pk Oliver: 1.44 LVOT Mn Oliver: 0.98 LVOT VTI: 0.30 LVOT Pk Grad: 8.00 LVOT Mn Grad: 4.00 LVOT Diam: 1.70 LVOT Area: 2.27 Diastolic Function MV Pk E: 1.05 MV Pk A: 0.67 E/A: 1.60 E'Medial: 10.80 E/E' Med: 9.70 E' Laterial: 18.20 E/E' Lat: 5.80 Right Ventricle TAPSE (mm): 27.30 TVS' Oliver: 13.30 Tricuspid Valve TR Pk Oliver: 2.08 TR Pk Grad: 17.00 RA Press: 3.00 RVSP: 20.00 Great Vessels Aorta Sinus of Valsalva: 2.60 2.0-3.5 cm Ao Asc: 2.50 2.1-3.4 cm Pulmonary Valve PV Pk Oliver: 1.13 Peak PV Grad: 5.00 Updated in Other Vendor System with Status of Final Jonathan Mariano MD electronically signed on 03/06/2024 3:57:44 PM with status of Final
== END ==
LOC: HO.CARD 14:45
PROVIDERS: PCP Nurse Practitioner Family; Visit Provider Nurse Practitioner Family
DX: R01.1 Cardiac murmur, unspecified (principal)
CPT/HCPCS: 93306; 93356

== ENCOUNTER → 2024-03-05 14:47 | Outpatient (BNV) | payer OTHER, SELFPAY | PROVIDERS: PCP Nurse Practitioner Family; Visit Provider Internal Medicine | DX: I34.0 Nonrheumatic mitral (valve) insufficiency (principal) | CPT/HCPCS: 93306; 93356 ==

== ENCOUNTER 2024-04-27 14:42 | Outpatient (AMB) | payer OTHER, SELFPAY ==
[2024-04-27 14:44] VITALS: BP 120/80; PULSE 70; BMI 23.1
--- NOTE | 2024-04-27 14:44 | A.OFFVIS_ITS ---
Vital Signs 04/27/24 14:44 Height 5 ft 4 in Weight 134 lb 7.712 oz BMI 23.1 BP 120/80 Blood Pressure Location Lt brachial Position Sitting Pulse 70 Intake Visit Reasons: [facility] [place] follow-up murmur/sob/cp Intake Note: Follow-up follow-up hx murmur c/o sob and chest pain heart rate goes up fast during exercise and then turns into palpitations and then chest pain Manager [employer] Required: No Allergies No Known Allergies [No Known Allergies*] Allergy (Verified 10/01/23 14:28) Medication List - Last Reconciled 04/27/24 by Jas Siddiqi MD dextroamphetamine-amphetamine 10 mg 10 mg PO DAILY PRN dextroamphetamine-amphetamine 25 mg ER 25 mg PO QAM iron fum,[id number]-Yssdo,C no.9 125 mg iron- 1 mg (Folivane-Plus) 1 cap PO DAILY levonorgestrel (Mirena) intrauterine multivitamin with iron (Daily Multiple Vitamins with Iron tablet) 1 tab PO DAILY ondansetron HCl 4 mg PO Q8H 30 days HPI Comments Details: Oliva was referred for further evaluation of exertional shortness of breath. 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 She also went chemotherapy and radiation therapy at that point time. Complete remission from that but had continued weakness and muscle loss in her left thigh and subsequently had some surgery associated with. She subsequently leg swelling and ruled out for DVT. She recently had an echocardiogram for systolic murmur which showed normal LV ejection fraction 71% with no major valvular abnormality with overall heart function within normal limits. However she says when she is exercising and going on hikes with other people she is not able to keep up and gets symptoms of shortness of breath. She is very bothered by the symptoms. She also notices significantly elevated heart rate during this time. Patient wants further evaluation from that perspective. She says she should really not be having any symptoms given that she maintains her activity level. She denies any lightheadedness, syncope. Denies any orthopnea, PND, leg edema. No exertional chest pain. [facility] Medical History Multinodular goiter (nontoxic) Anxiety Mixed hyperlipidemia IBS (irritable bowel syndrome) Osteogenic sarcoma Surgical History History of biopsy (12/12/21) History of surgery History of surgery History of surgery Family History Father HTN (hypertension) Mother Glaucoma Anxiety Maternal Grandfather No problems noted. Maternal Grandmother Alzheimer's disease Dementia Paternal Grandfather Stroke Paternal Grandmother Stroke Brother No problems noted. Social History Housing: House Alcohol intake: current Alcohol intake frequency: holidays/special occasions only Patient Tobacco Use Status: Never used Tobacco e-Cigarette/Vaping Use: Currently Using (thc) Second Hand Smoke Exposure: No service: No Current occupational status: employed Current occupation: [employer] Current occupational exposures/hazards: Yes Cognitive needs: No Hearing needs: No Vision needs: No Female Reproductive History Menstrual Age of Menarche: 11 Review of Systems Const Denies chills, Denies daytime sleepiness, Denies fatigue, Denies fever(s), Denies frequent falls, Denies poor appetite, Denies snoring, Denies stops breathing during sleep, Denies weakness, Denies weight gain and Denies weight loss Eyes Denies loss of vision ENT Denies dizziness and Denies hearing loss Card Denies chest pain, Denies claudication, Denies leg edema, Denies lightheadedness, Denies palpitations, Denies dyspnea, Denies dyspnea on exertion and Denies orthopnea Resp Denies cough, Denies excessive phlegm production, Denies dyspnea, Denies dyspnea on exertion, Denies snoring and Denies wheezing GI Denies abdominal pain, Denies hematochezia, Denies change in bowel habits, Denies nausea and Denies vomiting Denies urinary frequency and Denies dysuria Musc Denies arthralgias, Denies muscle weakness, Denies numbness and Denies other (frequent falls) Skin/Breast Denies nail changes and Denies rash Neuro Denies Abnormal speech present, Denies dizziness, Denies frequent falls, Denies loss of vision, Denies memory loss, Denies numbness and Denies weakness Psych Denies depression and Denies memory loss Endo Denies fatigue and Denies palpitations Rafita/Lymph Reports easy bruising and Reports other (anemia) Aller/Immun Denies wheezing Physical Exam Vital Signs: Last Vital Signs Pulse 70 04/27/24 14:44 BP 120/80 04/27/24 14:44 BMI result Body Mass Index 23.1 Const General: cooperative, comfortable, no acute distress, well developed, alert, awake and Physically active Nutritional Appearance: well nourished and thin Orientation/consciousness: patient oriented x3 Limitations: no limitations HEENT Head: Yes normocephalic and Yes atraumatic Neck Neck: Yes trachea midline, Yes supple and Yes no JVD Resp Effort & Inspection: normal respiratory effort Auscultation: clear to auscultation bilaterally Cardio Jugular venous distension: no JVD Palpation: normal PMI Rate: regular rate Rhythm: regular rhythm Heart sounds: S1 normal heart sound present, S2 normal heart sound present, no click, no gallops, no murmurs and no rubs GI Auscultation: normal bowel sounds Skin General skin exam: no rashes or lesions noted Neuro General: patient oriented x3 and no focal motor deficits Speech: No Abnormal speech present Extrem General: Yes no clubbing, cyanosis or edema and Yes other (Significant reduction in left quadricep muscle mass) Office Procedures EKG Details: EKG shows normal sinus rhythm nonspecific ST changes 14671-[id number], Complete Assessment & Plan Assessment & Plan (1) SOB (shortness of breath) on exertion: Code(s): R06.02 - Shortness of breath Category: Medical Plan: Shortness of breath on exertion with normal echocardiogram in this young woman without any other traditional cardiovascular risk factor. Unlikely that these symptoms are present myocardial ischemia. Most likely either deconditioning related to her left quadriceps reduce muscle mass and/or autonomic dysfunction especially given faster heart rate with exercise probably suggestive of inappropriate sinus tachycardia. Would suggest a treadmill stress test to evaluate for exercise capacity and hemodynamic response to exercise. Will also suggest a 7 day Holter monitor to assess for any significant inappropriate sinus tachycardia or other arrhythmias associated with fast heart rate. She is encouraged to continue to participate in aggressive hydration and salt intake prior to exercise. Also suggest to maintain activity level as to improve vagal tone. Will follow up in the clinic if need be. Thank you for allowing me to partake in his care Orders: Orders CA stress test 04/27/24 R06.02 - Shortness of breath ECG 7 day holter monitor 04/27/24 R00.0 - Tachycardia, unspecified Coding Level of Care Code New Pt Level 4 (38228) Diagnoses SOB (shortness of breath) on exertion R06.02 CPT Codes EKG - CPT: 37446-[id number], Complete ([id number])
== END 2024-04-27 15:29 | disposition home or self-care (01) ==
PROVIDERS: PCP Nurse Practitioner Family; Visit Provider Internal Medicine Cardiovascular Disease
DX: R06.02 Shortness of breath (principal)
CPT/HCPCS: 93010; 99204

== ENCOUNTER → 2024-04-27 14:42 | Outpatient (BNVA) | payer OTHER, SELFPAY | PROVIDERS: PCP Nurse Practitioner Family; Visit Provider Internal Medicine Cardiovascular Disease | DX: R06.02 Shortness of breath (principal); R00.0 Tachycardia, unspecified; R00.2 Palpitations; R07.9 Chest pain, unspecified | CPT/HCPCS: 93005; 99202 ==

== ENCOUNTER → 2024-05-12 08:17 | Outpatient (REF) | payer OTHER, SELFPAY ==
--- NOTE | 2024-05-12 08:20 | CA_ITS ---
Acquisition Time: 2024-05-12 08:37:30 Total Exercise Time: 00:11:59 Test Indications: CP, SOB Medications: SEE H Protocol: DOMINIC Max HR: 181 BPM 97% of Pred: 185 BPM Max BP: 160/068 mmHG Max Work Load: 13.4 METS Exercise stress test exercise 11 min 59 sec of Dominic protocol achieving 97% MPHR, with mild to moderate SOB, 2/10 mid upper chest pressure, with isolated PACs, with normotensive response to exercise, without EKG changes. Chest pressure resovled with rest. Test reviewed with Dr. Diego Referred By: Jas Siddiqi Overread By: Norma Landry
--- NOTE | 2024-05-12 08:20 | HM_ITS ---
Conclusion: 1. Patient was monitored for total period of 5 days and 19 hours 2. Baseline was normal sinus rhythm with average heart of 77 beats per minute 3. No significant arrhythmias or pauses noted 4. Patient marked the counter 2 times correlating with once sinus rhythm and 1 sinus tachycardia MTDD
== END ==
LOC: HO.CARD 08:17
PROVIDERS: PCP Nurse Practitioner Family; Visit Provider Internal Medicine Cardiovascular Disease
DX: R06.02 Shortness of breath (principal); R00.0 Tachycardia, unspecified
CPT/HCPCS: 93017; 93242

== ENCOUNTER → 2024-05-12 08:20 | Outpatient (BNV) | payer OTHER, SELFPAY | PROVIDERS: PCP Nurse Practitioner Family; Visit Provider Nurse Practitioner | DX: R00.0 Tachycardia, unspecified (principal) | CPT/HCPCS: 93016; 93018; 93244 ==

== ENCOUNTER 2024-06-11 08:30 | Outpatient (AMB) | payer OTHER, SELFPAY ==
[2024-06-11 08:34] VITALS: BP 100/60; PULSE 69; BMI 23.6
--- NOTE | 2024-06-11 08:34 | A.OFFVIS_ITS ---
Vital Signs 06/11/24 08:34 Height 5 ft 4 in Weight 137 lb 9.095 oz BMI 23.6 BP 100/60 Blood Pressure Location Lt brachial Position Sitting Pulse 69 Pulse Source Pulse Oximeter Intake Visit Reasons: f/up ett/ holter NS Product Management Intern Required: No Allergies No Known Allergies [No Known Allergies*] Allergy (Verified 06/11/24 08:35) Medication List - Last Reconciled 06/11/24 by ITALO Lunsford dextroamphetamine-amphetamine 10 mg 10 mg PO DAILY PRN dextroamphetamine-amphetamine 25 mg ER 25 mg PO QAM iron fum,eg-dunem-Pziyb,C no.9 125 mg iron- 1 mg (Folivane-Plus) 1 cap PO DAILY levonorgestrel (Mirena) intrauterine multivitamin with iron (Daily Multiple Vitamins with Iron tablet) 1 tab PO DAILY ondansetron HCl 4 mg PO Q8H 30 days HPI HPI f/up ett/ holter NS: Details: Oliva is a 33-year-old female with past medical history of osteosarcoma with left femur bone removal with reconstruction, chemotherapy, age 7, now in remission with chronic quadricep muscle loss left leg who was very physically active and reports shortness of breath and a discomfort in her chest with over exertion. She underwent an exercise stress test and Holter monitor and now presents for follow-up. Today she reports that if she does cardio workout like when she did the stress test she will notice shortness of breath and a pressure sensation in her chest. She does not get this feeling with her normal ADLs and activities such as her mountain climbing. She feels that she has to work harder than other people her age to keep up with them. She was told years ago that her chemotherapy may affect her heart in the future. No heart palpitations, presyncope, syncope, falls. No chest discomfort at rest or during the mountain climbing activity. N o PND, orthopnea or edema. She has no known cardiac history. [facility] Medical History Multinodular goiter (nontoxic) Anxiety Mixed hyperlipidemia IBS (irritable bowel syndrome) Osteogenic sarcoma Surgical History History of biopsy (12/12/21) History of surgery History of surgery History of surgery Family History Father HTN (hypertension) Mother Glaucoma Anxiety Maternal Grandfather No problems noted. Maternal Grandmother Alzheimer's disease Dementia Paternal Grandfather Stroke Paternal Grandmother Stroke Brother No problems noted. Social History Housing: House Alcohol intake: current Alcohol intake frequency: holidays/special occasions only Patient Tobacco Use Status: Never used Tobacco e-Cigarette/Vaping Use: Currently Using (thc) Second Hand Smoke Exposure: No service: No Current occupational status: employed Current occupation: [employer] Current occupational exposures/hazards: Yes Cognitive needs: No Hearing needs: No Vision needs: No Female Reproductive History Menstrual Age of Menarche: 11 Review of Systems Const All systems reviewed & are unremarkable except as noted in HPI and below ENT Denies dizziness Card Reports chest pain, Denies chest pain at rest, Denies chest pain with activity, Denies rapid heart rate, Denies pedal edema, Denies edema, Denies leg edema, Denies lightheadedness, Denies palpitations, Denies dyspnea, Reports dyspnea on exertion and Denies orthopnea Resp Denies cough, Denies dyspnea and Reports dyspnea on exertion GI Denies hematochezia and Denies change in stool character Musc Denies abnormal gait, Reports limited range of motion, Reports muscle cramps, Denies muscle weakness, Denies numbness, Denies radiating pain into limb, Denies stiffness and Denies tingling Neuro Denies abnormal gait, Denies dizziness, Denies numbness and Denies tingling Endo Denies palpitations Physical Exam Vital Signs: Last Vital Signs Pulse 69 06/11/24 08:34 BP 100/60 06/11/24 08:34 BMI result Body Mass Index 23.6 Const General: cooperative, healthy appearing, comfortable and no acute distress Orientation/consciousness: patient oriented x3 Chest Chest palpation & inspection: normal inspection of the chest Resp Effort & Inspection: normal respiratory effort Auscultation: clear to auscultation bilaterally, no rales, no rhonchi and no wheezes Cardio Jugular venous distension: no JVD Rate: regular rate Rhythm: regular rhythm Heart sounds: S1 normal heart sound present, S2 normal heart sound present, no murmurs and no rubs Neuro General: patient oriented x3 Psych Appearance: grossly normal Mental Status: mental status grossly normal Speech and movement: Normal speech and movement present Assessment & Plan Assessment & Plan (1) SOB (shortness of breath) on exertion: Code(s): R06.02 - Shortness of breath Category: Medical Plan: Reports of shortness of breath and a pressure sensation in her chest if she over exerts with cardio type activity. An echocardiogram was done 03/05/2024 showing EF 71%, no valve abnormalities, no regional wall motion abnormalities, normal diastolic function. Exercise stress test was done 05/12/2024 with exercise 12 minutes achieving 97% MPHR with shortness of breath and mild pressure in her chest however no EKG changes of ischemia. Holter monitor done 05/12/2024 for over 5 days shows sinus rhythm with average heart rate 77, heart rate range 45 to 163, rare PVCs and PACs. Her symptoms correlated once with sinus rhythm and once with sinus tachycardia. Test results reviewed with her in detail. She has no traditional cardiac risk factors. Offered reassurance that she is not likely to have CAD and that she does not have cardiomyopathy or valve disease. Discussed good hydration and use of salt prior to exercise. Discussed adding more cardio workout to her exercise regime, starting slow and building up as able. With her history of surgery on her left leg and partial removal of her quadricep muscle discussed how she has to work harder to do the same activity as other people her age. She will continue to work on exercise as tolerated. Cardiology follow-up as needed. (2) History of osteosarcoma: Code(s): Z85.830 - Personal history of malignant neoplasm of bone Category: Medical Plan: As above Plan Time spent on chart review, documentation, interview, assessment Coding Level of Care Code Est Pt Level 3 (20223) Diagnoses SOB (shortness of breath) on exertion R06.02 History of osteosarcoma Z85.830 Time Spent (min) 24
== END 2024-06-11 08:55 | disposition home or self-care (01) ==
PROVIDERS: PCP Nurse Practitioner Family; Visit Provider Nurse Practitioner Family
DX: R06.02 Shortness of breath (principal); Z85.830 Personal history of malignant neoplasm of bone
CPT/HCPCS: 99213

== ENCOUNTER → 2024-06-11 08:30 | Outpatient (BNVA) | payer OTHER, SELFPAY | PROVIDERS: PCP Nurse Practitioner Family; Visit Provider Nurse Practitioner Family | DX: R06.02 Shortness of breath (principal); Z85.830 Personal history of malignant neoplasm of bone | CPT/HCPCS: 99212 ==

== ENCOUNTER 2024-09-02 08:31 | Outpatient (AMB) | payer OTHER, SELFPAY ==
--- NOTE | 2024-09-02 08:33 | A.OFFPC_ITS ---
Vital Signs 09/02/24 08:35 Height 5 ft 4 in Weight 140 lb BMI 24.0 BP 118/70 Blood Pressure Location Rt brachial Position Sitting Pulse 76 Pulse Source Pulse Oximeter Pulse Oximetry (%) 97 Intake Visit Reasons: PE/overdue Intake Note: pt is here for PE Patient Registrar Required: No Accompanied by: Self / Same As Patient Allergies No Known Allergies [No Known Allergies*] Allergy (Verified 09/02/24 08:35) Medication List - Last Reconciled 09/02/24 by WHIT JacksonP-BC dextroamphetamine-amphetamine 10 mg 10 mg PO DAILY PRN dextroamphetamine-amphetamine 25 mg ER 25 mg PO QAM iron fum,[id number]-[id number]-Kmozt,C no.9 125 mg iron- 1 mg (Folivane-Plus) 1 cap PO DAILY levonorgestrel (Mirena) intrauterine multivitamin with iron (Daily Multiple Vitamins with Iron tablet) 1 tab PO DAILY ondansetron HCl 4 mg PO Q8H 30 days Tobacco use date assessed: 09/02/24 Dental Screening Dental Screen Date: 09/02/24 Did you have a dental visit in the last 12 months?: Yes Did you have a dental problem in the last 6 months where you did not have access to dental care?: No Was dental information given to patient?: Patient has dentist HPI PE/overdue HPI Details History of Present Illness The patient is a 34-year-old female presenting with a routine physical examination. The patient has a history of Irritable Bowel Syndrome (IBS), which has been managed with probiotics, resulting in improved symptoms. Recently, shortness of breath was investigated by a assessment rn; a stress test and echocardiogram indicated a normal cardiac function with an ejection fraction over 70%. Despite these findings, the patient reports shortness of breath during physical activities like hiking, which has been attributed to possible autonomic nervous system involvement. Multinodular goiter, will recheck thyroid with US. 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 The patient denies current asthmatic symptoms, although a childhood history exists. Health Maintenance - Thyroid ultrasound to monitor nodular goiter - Pulmonary function test recommended - Monitoring and continuation of probiot ic treatment for IBS - Routine assessment for thyroid functio n and nodules - Regular cancer screening follow-up due to past history of osteosarcoma Social History - Engages in hiking and physical activit ies - Previous use of Adderall, currently di scontinued - Occasional alcohol consumption at netw orking events - Aware and compliant with prescribed th erapeutic regimen (e.g., probiotics) Review of Systems - Respiratory: Reports shortness of erica th with exertion; denies wheezing - Cardiovascular: Denies palpitations, c hest pain - Neurological: Denies lightheadedness o r fainting - Gastrointestinal: Reports improved kwasi rrhea with probiotic therapy; denies current bowel habit changes -denies any si or hi Physical Exam General: Cooperative, healthy appearing, comfortable, no acute distress and well developed Orientation: Patient oriented x3 Limitations: No limitations Head: Normal to inspection Ears: Hearing grossly normal bilaterally Nose: Normal external nose present Face and sinus: Normal facial exam Eyes: Appearance normal, both eyes and all related structures Neck: Normal visual inspection and Yes full ROM Respiratory: Normal respiratory effort and able to speak in complete sentences. Clear to auscultation bilaterally Cardiovascular: Regular rate and rhythm. Normal S1 and S2. Very faint systolic murmur noted GI: Normal to inspection. Soft to palpation and nontender Skin: No rashes or lesions noted Neuro: Patient oriented x3. Passed neurological test with flying colors Extremities: Normal to inspection. History of osteosarcoma with residual lymphedema noted. Results - Echocardiogram: Normal cardiac functio n with ejection fraction >70% - Doppler ultrasound: Abnormal venous re turn noted in the left lower extremity Plan - Continue probiotic therapy for IBS at twice daily. - Schedule a pulmonary function test to further evaluate shortness of breath. - Repeat thyroid ultrasound to assess no dular growths. - Consider further endocrine evaluation due to multinodular goiter. - Monitor venous insufficiency, recommen d compression therapy if symptoms persist. - Annual follow-up for routine surveilla nce of osteosarcoma history. - Educate on recognizing exacerbation si gns of potential underlying conditions. Patient was informed and verbally consented to the use of an ambient scribe for clinic note documentation during this visit. Discussion Notes During the visit, I reviewed the importance of maintaining current IBS management with probiotics which significantly benefit her symptoms. I discussed the results of cardiology work-ups, reassuring the patient about the excellent cardiac function and addressed potential autonomic contributions to her exertional dyspnea. We talked about the possible need for additional pulmonary assessments, such as a pulmonary function test, and the relevance of ruling out respiratory causes. I emphasized the need for ongoing thyroid surveillance due to the presence of nodules, and we discussed future ultrasound scheduling. The plan includes regular monitoring of venous status and encourages follow-up on routine cancer checks. The necessity of keeping cancer history in perspective through cautious observation was highlighted to reduce anxiety regarding new findings. Patient Instructions - Continue probiotics as prescribed to m anage IBS symptoms. - Await scheduling for a pulmonary funct ion test. - Plan for a thyroid ultrasound appointm ent. - Maintain active lifestyle with awarene ss of symptoms during exertion. - Schedule and attend annual follow-up f or cancer history monitoring. - Follow-up with any concerns regarding shortness of breath or changes in health. - Fast for 12 hours prior to scheduled l aboratory tests, with water consumption allowed. [facility] Medical History Multinodular goiter (nontoxic) Anxiety Mixed hyperlipidemia IBS (irritable bowel syndrome) Osteogenic sarcoma Surgical History History of biopsy (12/12/21) History of surgery History of surgery History of surgery Family History Father HTN (hypertension) Mother Glaucoma Anxiety Maternal Grandfather No problems noted. Maternal Grandmother Alzheimer's disease Dementia Paternal Grandfather Stroke Paternal Grandmother Stroke Brother No problems noted. Social History Housing: House Alcohol intake: current Alcohol intake frequency: holidays/special occasions only Patient Tobacco Use Status: Never used Tobacco e-Cigarette/Vaping Use: Currently Using Second Hand Smoke Exposure: No service: No Current occupational status: employed Current occupation: [employer] Current occupational exposures/hazards: Yes Cognitive needs: No Hearing needs: No Vision needs: No Female Reproductive History Menstrual Age of Menarche: 11 Questionnaire PHQ-9 Over the last 2 weeks, how often have you been bothered by any of the following problems? 1. Little interest or pleasure in doing things: more than half the days 2. Feeling down, depressed, or hopeless: several days 3. Trouble falling or staying asleep, or sleeping too much: more than half the days 4. Feeling tired or having little energy: more than half the days 5. Poor appetite or overeating: several days 6. Feeling bad about yourself - or that you are a failure or have let yourself or your family down: not at all 7. Trouble concentrating on things, such as reading the newspaper or watching television: more than half the days 8. Moving or speaking so slowly that other people could have noticed. Or the opposite - being so fidgety or restless that you have been moving around a lot more than usual: not at all 9. Thoughts that you would be better off or of hurting yourself in some way: not at all Total score: 10 Depression Screening Interpretation: Positive (therapist and psychiatrist, denies any si or hi) Depression Screening Follow-up: Existing condition and In treatment Depression Screening Done: Yes 74279 - PHQ-9 Billing: Yes Source: Developed by Drs. Gurmeet Linder, India Gates, Chris Choudhury and colleagues, with an educational ruby from [email or web address]. Thrive Questionnaire Date Thrive assessed: 09/02/24 I am a: Patient What is your living situation today?: I have a steady place to live Within the past 12 months, did the food you bought not last and you didn't have the money to get more?: Never true Within the past 12 months, did you worry whether your food would run out before you got money to buy more?: Never true Do you have trouble paying for medicines?: No Do you have trouble getting transportation to medical appointments?: No Do you have trouble paying your heating and electricity bill?: No Do you have trouble taking care of your child, family member or friend?: No Do you have trouble with day-to-day activities such as bathing, preparing meals, shopping, managing finances, etc.?: No Are you currently unemployed and looking for a job?: No Are you interested in more education?: No Please select the resources that you would like help with: None Currently or been in a relationship where the following occur: No concerns reported THRIVE Score: 0 AUDIT C Alcohol Use Questionnaire (AUDIT-C) 1. How often do you have a drink containing alcohol?: Monthly or less 2. How many drinks containing alcohol do you have on a typical day when you are drinking?: 1 or 2 3. How often do you have six or more drinks on one occasion?: Never Total Score: 1 Score Reviewed/Action Taken: Yes MINA-7 AMB Questionnaire MINA-7 Date MINA - 7 assessed: 09/02/24 Feeling nervous, anxious, or on edge: 1 = Several days Not being able to stop or control worryin = Not at all Worrying too much about different things: 1 = Several days Trouble relaxin = Several days Being so restless that it is hard to sit still: 1 = Several days Becoming easily annoyed or irritable: 0 = Not at all Feeling afraid as if something awful might happen: 0 = Not at all Total MINA-7 score (0-4 normal; 5-9 mild; 10-14 moderate; 15-21 severe): 4 Source: Developed by Drs. Gurmeet Linder, India Gates, Chris Choudhury and colleagues, with an educational ruby from [email or web address]. MINA-7 Assessment Billing MINA-7 Assessment Tool: MINA-7 Assessment 65764 Physical exam (Primary Care) Vital Signs: Last Vital Signs Pulse 76 09/02/24 08:35 BP 118/70 09/02/24 08:35 Pulse Ox 97 09/02/24 08:35 BMI result Body Mass Index 24.0 Tobacco/Smoking Status: Tobacco use Status Tobacco use date assessed 09/02/24 09/02/24 08:36 Patient Tobacco Use Status Never used Tobacco 09/02/24 08:34 e-Cigarette/Vaping Use Currently Using 09/02/24 08:34 PHQ-9: PHQ-9 Score PHQ-9: Total score 10 09/02/24 08:36 Depression Screening Interpretation: Positive (therapist and psychiatrist, denies any si or hi) Depression Screening Follow-up: Existing condition and In treatment Thrive Assessment: Date of Thrive Assessment Date Thrive assessed 09/02/24 09/02/24 08:36 Currently or been in a relationship where the following occur: No concerns reported Coding Level of Care Code Est Pt Prev Care 18-39y(13838) Diagnoses Physical exam Z00.00 SOB (shortness of breath) on exertion R06.02 Multinodular goiter (nontoxic) E04.2 Additional Codes MINA-7 Assessment Billing - MINA-7 Assessment Tool: MINA-7 Assessment 81448 ([id number]) PHQ-9 - 94446 - PHQ-9 Billing: Yes ([id number]) Assessment & Plan Assessment & Plan (1) Physical exam: Code(s): Z00.00 - Encounter for general adult medical examination without abnormal findings Category: Medical (2) SOB (shortness of breath) on exertion: Code(s): R06.02 - Shortness of breath Category: Medical (3) Multinodular goiter (nontoxic): Code(s): E04.2 - Nontoxic multinodular goiter Category: Medical Plan . Orders: Orders Comprehensive [place]. Panel Fast Today Z00.00 - Encounter for general adult medical examination without abnormal findings TSH reflex Free T4 Today Z00.00 - Encounter for general adult medical examination without abnormal findings UA CC w/rflx Micro + Cult Today Z00.00 - Encounter for general adult medical examination without abnormal findings Lipid Panel Today Z00.00 - Encounter for general adult medical examination without abnormal findings Complete Blood Count Auto Diff Today Z00.00 - Encounter for general adult medical examination without abnormal findings PFT pulmonary function test Today R06.02 - Shortness of breath US thyroid Today E04.2 - Nontoxic multinodular goiter
[2024-09-02 08:35] VITALS: BP 118/70; PULSE 76; O2SAT 97; BMI 24.0
== END 2024-09-02 09:11 | disposition home or self-care (01) ==
PROVIDERS: PCP Nurse Practitioner Family; Visit Provider Nurse Practitioner Family
DX: Z00.00 Encounter for general adult medical examination without abnormal findings (principal); R06.02 Shortness of breath; E04.2 Nontoxic multinodular goiter; Z23 Encounter for immunization

== ENCOUNTER 2024-09-02 08:31 | Outpatient (REF) | payer OTHER, SELFPAY ==
[2024-09-02 13:14] LABS: MANUAL DIFF FLAG NO
[2024-09-02 13:24] LABS: Basophils Percent Auto 0.7 % (0-2); Eosinophils Absolute Auto 0.1 X10*3/uL (0.0-0.4); Hematocrit 41.4 % (37.0-47.0); Hemoglobin 13.3 g/dl (12.0-16.0); Imm Gran Abs Auto 0.01 X10*3/uL (0.00-0.03); Imm Gran Pct Auto 0.2 % (0.0-0.4); Lymphocytes Absolute Auto 1.7 X10*3/uL (1.2-4.9); Lymphocytes Percent Auto 39.5 % (20-40); Mean Corpuscular HGB Conc 32.1 g/dl (31.0-35.0); Mean Corpuscular Hemoglobin 30.5 pg (27.0-33.0); Mean Platelet Volume 10.4 fL (9.4-12.3); Monocytes Absolute Auto 0.3 X10*3/uL (0.1-1.2); Monocytes Percent Auto 6.1 % (2-11); Neutrophils Absolute Auto 2.2 x10*3/uL (2.0-8.3); Neutrophils Percent Auto 50.5 % (45-73); Platelet Count 265 X10*3/uL (160-400); Red Blood Count 4.36 X10*6/uL (4.20-5.50); Red Cell Distribution Width 11.9 % (11.0-16.0); White Blood Count 4.4 X10*3/uL (4.8-10.8)
[2024-09-02 13:36] LABS: Appearance Urine Clear; Color Urine Yellow; Glucose Urine UA Negative (Negative); Leukocyte Esterase Urine Negative (Negative); Nitrite Urine Negative (Negative); Urine Blood Negative (Negative); Urine Ketones Negative (Negative); Urine Protein Negative (Neg-Trace)
[2024-09-02 14:08] LABS: Alanine Aminotransferase 35 U/L (0-31); Albumin Level 4.2 g/dL (3.5-5.0); Alkaline Phosphatase 38 U/L (39-117); Anion Gap 9 (12-20); Aspartate Amino Transferase 37 U/L (5-31); Bilirubin Total 0.7 mg/dL (0.0-1.0); Blood Urea Nitrogen 14 mg/dL (9-16); Calcium 9.8 mg/dL (8.4-10.2); Carbon Dioxide 31 mmol/L (22-29); Chloride 106 mmol/L (96-108); Cholesterol 172 mg/dL (<200); Estimated Glomerular Filt Rate > 60; Glucose Fasting 85 mg/dL (60-99); HDL Cholesterol 59 mg/dL (>40); LDL Cholesterol Calculated 99 mg/dL (<100); Potassium 3.8 mmol/L (3.3-5.1); Sodium 142 mmol/L (135-145); Total Protein 6.7 g/dL (6.5-8.0); Triglycerides 70 mg/dL (<150)
[2024-09-02 14:11] LABS: TSH reflex Free T4 2.37 uIU/mL (0.32-4.0)
== END 2024-09-02 08:32 | disposition home or self-care (01) ==
LOC: HO.HMGCLDS 08:31
PROVIDERS: PCP Nurse Practitioner Family; Visit Provider Nurse Practitioner Family
DX: Z00.00 Encounter for general adult medical examination without abnormal findings (principal); Z23 Encounter for immunization; R06.02 Shortness of breath; E04.2 Nontoxic multinodular goiter; K58.9 Irritable bowel syndrome, unspecified
CPT/HCPCS: 36415; 80053; 80061; 81003; 84443; 85025; 90471; 90656; 96127; 99395

== ENCOUNTER 2024-09-09 08:25 | Outpatient (REF) | payer OTHER, SELFPAY ==
--- NOTE | ~2024-09-09 | US_ITS ---
EXAMINATION: US ABDOMEN COMPLETE CLINICAL INFORMATION: Abnormal levels of other serum enzymes. COMPARISON: None available. TECHNIQUE: Real-time imaging of the abdominal viscera. FINDINGS: PANCREAS: Visualized portions are unremarkable. ABDOMINAL AORTA: The proximal, mid, and distal segments are normal in caliber. INFERIOR VENA CAVA: Visualized portions are normal. LIVER: The liver is normal in size. The liver contour is normal. Parenchymal echogenicity is normal. No focal hepatic lesion. There is no intrahepatic biliary duct dilatation seen. GALLBLADDER: The gallbladder is physiologically distended without evidence of stones, sludge, wall thickening or pericholecystic fluid. Echogenic structure adherent to the gallbladder wall probably a small polyp 2 mm. COMMON BILE DUCT: Normal in caliber measuring 0.36 cm in diameter. RIGHT KIDNEY: No hydronephrosis. No renal calculi or focal parenchymal lesions. The kidney measures 11.9 cm in maximum dimension. LEFT KIDNEY: No hydronephrosis. No renal calculi or focal parenchymal lesions. The kidney measures 11.0 cm in maximum dimension. SPLEEN: The spleen measures 9.8 cm in maximum dimension. FREE FLUID: None. US/US abdomen complete IMPRESSION: * No ultrasound evidence of intra or extrahepatic biliary dilatation. * Echogenic structure adherent to the gallbladder wall 2 mm probably a small polyp. Attention to follow-up ultrasound in 6 months recommended. Electronically signed by: Marilyn Martin MD 09/14/2024 05:58 PM [facility]
[2024-09-09 10:17] LABS: MANUAL DIFF FLAG NO
[2024-09-09 10:30] LABS: Basophils Absolute Auto 0.1 X10*3/uL (0.0-0.2); Basophils Percent Auto 0.9 % (0-2); Eosinophils Absolute Auto 0.1 X10*3/uL (0.0-0.4); Eosinophils Percent Auto 2.4 % (0-4); Hematocrit 42.1 % (37.0-47.0); Hemoglobin 14.3 g/dl (12.0-16.0); Imm Gran Abs Auto 0.01 X10*3/uL (0.00-0.03); Imm Gran Pct Auto 0.2 % (0.0-0.4); Lymphocytes Absolute Auto 1.9 X10*3/uL (1.2-4.9); Lymphocytes Percent Auto 34.4 % (20-40); Mean Corpuscular Hemoglobin 31.2 pg (27.0-33.0); Mean Corpuscular Volume 91.9 fL (80.0-98.0); Monocytes Absolute Auto 0.3 X10*3/uL (0.1-1.2); Neutrophils Absolute Auto 3.1 x10*3/uL (2.0-8.3); Neutrophils Percent Auto 56.1 % (45-73); Platelet Count 278 X10*3/uL (160-400); Red Blood Count 4.58 X10*6/uL (4.20-5.50); White Blood Count 5.5 X10*3/uL (4.8-10.8)
[2024-09-09 11:11] LABS: Alanine Aminotransferase 36 U/L (0-31); Albumin Level 4.7 g/dL (3.5-5.0); Alkaline Phosphatase 46 U/L (39-117); Anion Gap 8 (12-20); Aspartate Amino Transferase 36 U/L (5-31); Bilirubin Total 0.8 mg/dL (0.0-1.0); Blood Urea Nitrogen 13 mg/dL (9-16); Calcium 9.8 mg/dL (8.4-10.2); Carbon Dioxide 31 mmol/L (22-29); Chloride 105 mmol/L (96-108); Estimated Glomerular Filt Rate > 60; Glucose Random 78 mg/dL (60-115); Iron 191 mcg/dL (30-160); Magnesium 2.3 mg/dL (1.6-2.6); Percent Iron Saturation 73 % (15-50); Potassium 3.8 mmol/L (3.3-5.1); Sodium 140 mmol/L (135-145); Total Iron Binding Capacity 261 mcg/dL (228-428); Total Protein 7.9 g/dL (6.5-8.0); Unsaturated Iron Binding 70 ug/dL
[2024-09-09 11:29] LABS: Ferritin 92 ng/mL (10-122); HBS Num1 3.74 mIU/mL (0-7.99); HBc Num1 0.19 S/CO (0.00-0.79); HBsAGNum1 0.43 S/CO (0.00-0.99); Hepatitis A Antibody IgM 0.25 Index (0-0.79); Hepatitis B Core Antibody Nonreactive (Nonreactive); Hepatitis B Surface Antigen Negative (Negative); ~HepC Num1 0.16 S/CO (0.00-0.79); ~Hepatitis A Antibody IgM Nonreactive (Nonreactive); ~Hepatitis B Surface Antibody NONREACTIVE (Nonreactive); ~Hepatitis C Antibody Nonreactive (Nonreactive)
[2024-09-09 11:40] LABS: Folate > 20.0 ng/mL (> or = 4.0); Vitamin B12 713 pg/mL (200-900)
[2024-09-12 01:58] LABS: Zinc 86 mcg/dL (60-130)
[2024-09-12 23:22] LABS: Ceruloplasmin 22 mg/dL (14-48)
== END 2024-09-09 08:26 | disposition home or self-care (01) ==
LOC: HO.HMGCX 08:25
PROVIDERS: PCP Nurse Practitioner Family; Visit Provider Nurse Practitioner Family
DX: E04.2 Nontoxic multinodular goiter (principal); R74.8 Abnormal levels of other serum enzymes; E61.1 Iron deficiency
CPT/HCPCS: 36415; 76536; 76700; 80053; 82390; 82607; 82728; 82746; 83540; 83735; 84630; 85025; 86704; 86706; 86709; 86803; 87340

== ENCOUNTER 2024-10-20 07:58 | Outpatient (REF) | payer OTHER, SELFPAY ==
--- OUTSIDE RECORDS SUMMARY | 2024-10-20 08:02 | XMS_ITS | Encounter Summary ---
Author Organization [facility] Address [address] [place] [phone] Phone Care Team Providers Care Sign Installer Name Role Phone Darlene Kim MD Primary Care Provider Unava ilable Encounter Details Date Type Department Care Team (Late st Contact Info) Description 03/22/2010 Documentation [facility] [address] [place] [address] Family Medicine, Physician [address] [place], [place] [id number] Social History Tobacco Use Types Packs/Day Years Used Date Smoking Tobacco: Never Assessed Comments Unknown Sex and Gender Information Value Date Recorded Sex Assigned at Not on file Legal Sex Female 4:45 PM EDT Gender Identity Not on file Sexual Orientation Not on file documented as of this encounter Plan of Treatment Not on file documented as of this encounter Visit Diagnoses Not on filedocumented in this encounter Care Teams Sign Installer Relationship Specialty Start Date End Date Darlene Kim MD PCP - General 05/03/17 documented as of this encounter
--- OUTSIDE RECORDS SUMMARY | 2024-10-20 08:02 | XMS_ITS | Clinical Summary ---
Author Organization [facility] Address [address] [place] [address] Care Team Providers Care Telephone Station Installer Name Role Phone Berenice Campbell MD Primary Care Provider [phone] Allergies No known active allergies Medications No known medications Social History Tobacco Use Types Packs/Day Years Used Date Smoking Tobacco: Never Assessed Sex and Gender Information Value Date Recorded Sex Assigned at Not on file Gender Identity Not on file Sexual Orientation Not on file Last Filed Vital Signs Vital Sign Reading Time Taken Comments Blood Pressure - - Pulse - - Temperature - - Respiratory Rate - - Oxygen Saturation - - Inhaled Oxygen Concentration - - Weight 63.5 kg (140 lb) 12/30/2019 9:27 AM EDT Height 162.6 cm (5' 4 ) 12/30/2019 9:27 AM EDT Body Mass Index 24.03 12/30/2019 9:27 AM EDT Plan of Treatment Health Maintenance Due Date Last Done Comments Hepatitis B Vaccines (1 of 3 - 3-dose series) 1988 Hepatitis C Screening 1988 COVID-19 Vaccine (#1) 1988 Depression Screening 2000 Preventative Health Evaluation 2006 Cervical Cancer Screening (Pap Smear) 2009 DTap / Tdap / Td (7 - Td or Tdap) 02/06/2023 02/06/2013, 01/06/2002, 07/04/1993, Additional history exists Influenza Vaccine (#1) 2024 07/18/2001 Pneumococcal Vaccine Aged Out No long er eligible based on patient's age to complete this topic RSV Ped < 20 months Aged Out No longe r eligible based on patient's age to complete this topic Care Teams Telephone Station Installer Relationship Specialty Start Date End Date Berenice Campbell MD [address] [facility] [place] Schultz [phone] PCP - General Order Filler 12/24/19
--- OUTSIDE RECORDS SUMMARY | 2024-10-20 08:02 | XMS_ITS | Encounter Summary ---
Author Organization [facility] Address [address] [place] [phone] Phone Care Team Providers Care Fireboat Operator Name Role Phone Darlene Kim MD Primary Care Provider Unava ilable Encounter Details Date Type Department Care Team (Late st Contact Info) Description 11/17/2010 Documentation [facility] [address] [place] [address] Family Medicine, Physician [address], [place] [phone] Social History Tobacco Use Types Packs/Day Years [...] on filedocumented in this encounter Care Teams Fireboat Operator Relationship Specialty Start Date End Date Darlene Kim MD PCP - General 05/03/17 documented as of this encounter
--- OUTSIDE RECORDS SUMMARY | 2024-10-20 08:02 | XMS_ITS | Encounter Summary ---
Author Organization [facility] Address [address] [place] [address] Phone Care Team Providers Care Universal Worker Assisted Living Name Role Phone Darlene Kim MD Primary Care Provider Unava ilable Encounter Details Date Type Department Care Team (Late st Contact Info) Description 05/09/2017 Conversion Encounter [facility] - [address] [address] Social History Tobacco Use Types Packs/Day Years [...] on filedocumented in this encounter Care Teams Universal Worker Assisted Living Relationship Specialty Start Date End Date Darlene Kim MD PCP - General 05/03/17 documented as of this encounter
--- OUTSIDE RECORDS SUMMARY | 2024-10-20 08:02 | XMS_ITS | Clinical Summary ---
Author Organization [facility] Address [address] [place] [address] Phone Care Team Providers Care Bicycle I Assembler Name Role Phone Darlene Kim MD Primary Care Provider Unava ilable Immunizations Name Administration Dates Next Due DTP 07/04/1993, 0,1988,10/12,1988 HPV, Quadrivalent 01/12/2009,10/17/2007,05/02/20 07 Hep B, ped/adol 01/06/2002,08/27/2001,07/28/2001 Hib (PRP-T) 02/14/1990 Influenza Split 05/15/2011,07/18/2001 Influenza, injectable, trivalent 07/18/2001 MMR 04/26/2003,11/08/1989 Meningococcal Conj (Menactra) MCV4P 05/02/2007 OPV 07/04/1993, 0,1988,08/08 Td (adult) (MBL), 2 Lf tetan us toxoid, PF, adsorbed 01/06/2002 Tdap 02/06/2013 Varicella 02/13/2013,02/09/2013,04/26/2003 Social History Tobacco Use Types Packs/Day Years Used Date Smoking Tobacco: Never Assessed Comments Unknown Sex and Gender Information Value Date Recorded Sex Assigned at Not on file Legal Sex Female 4:45 PM EDT Gender Identity Not on file Sexual Orientation Not on file Last Filed Vital Signs Vital Sign Reading Time Taken Comments Blood Pressure - - Pulse - - Temperature 36.8 ??C (98.3 ??F) 11/16/2010 12:[address] Respiratory Rate - - Oxygen Saturation - - Inhaled Oxygen Concentration - - Weight 64 kg (141 lb) 11/16/2010 12:00 AM EST Height - - Body Mass Index - - Plan of Treatment Health Maintenance Due Date Last Done Comments Consider Men B Vaccine (1 of 2 - Bexsero 2-dose series) 2004 DTaP,Tdap,and Td Vaccines (7 - Td or Tdap) 02/06/2023 02/06/2013, 01/06/2002, 07/04/1993, Additional history exists Influenza Vaccines (#1) 2024 05/15/20 11, 07/18/2001, 07/18/2001 COVID-19 Vaccine ( season) 2024 HIB Vaccines Completed 02/14/1990 IPV Vaccines Completed 07/04/1993, 01/22, 1988, Additional history exists Hepatitis B Vaccines Completed 01/06/2002, 08/27/2001, 07/28/2001 MMR Vaccines Completed 04/26/2003, 11/08/1989 Meningococcal Vaccine Completed 05/02/2007 HPV Vaccines Completed 01/12/2009, 09/24, 05/02/2007 Varicella Vaccines Completed 02/13/2013, 0 02/09/2013, 04/26/2003 Hepatitis A Vaccines Aged Out No long er eligible based on patient's age to complete this topic Men B Vaccine Aged Out No longer elig ible based on patient's age to complete this topic Pneumococcal Vaccine Aged Out No long er eligible based on patient's age to complete this topic Care Teams Bicycle I Assembler Relationship Specialty Start Date End Date Darlene Kim MD PCP - General 05/03/17
--- NOTE | 2024-10-20 08:04 | PFT_ITS ---
Flows: FEV1: 96 % of predicted at 2.99 L FVC: 105 % of predicted at 3.92 L FEV1/FVC: 76 % Bronchodilator response: Absent Volumes: Total lung capacity: 100 % of predicted at 5.20 L Residual volume: 100 % of predicted at 1.25 L Slow vital capacity: 99 % of predicted at 3.95 L Expiratory reserve volume: 97 % of predicted at 1.23 L Diffusion capacity: Normal Impression: No obstructive or restrictive ventilatory defect. No bronchodilator response. Normal pulmonary function test. MTDD
== END 2024-10-20 07:59 | disposition home or self-care (01) ==
LOC: HO.RESP 07:58
PROVIDERS: PCP Nurse Practitioner Family; Visit Provider Nurse Practitioner Family
DX: R06.02 Shortness of breath (principal)

== ENCOUNTER → 2024-10-20 08:04 | Outpatient (BNV) | payer OTHER, SELFPAY | PROVIDERS: PCP Nurse Practitioner Family; Visit Provider Internal Medicine Pulmonary Disease | DX: R06.02 Shortness of breath (principal) | CPT/HCPCS: 94060; 94727; 94729 ==

== ENCOUNTER 2025-02-18 09:08 | Outpatient (AMB) | payer OTHER, SELFPAY ==
--- NOTE | 2025-02-18 09:09 | A.OFFVIS_ITS ---
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 Doing well with deck cadet concerns: She reports occasional leakage of urine with activities, i.e. using a trampoline. Mirena IUD user, no bleeding concerns. Currently is sexually active. She denies vaginal itching or irritation. STI screening offered; she declines She tries to eat healthy and stays active with exercise. Denies family history of breast, ovarian or colon cancer. Last pap smear 2023, negative. [facility] Medical History (Updated 02/18/25 @ 09:52 by Jenn Calzada CNM) Stress incontinence IUD strings lost Multinodular goiter (nontoxic) Anxiety Mixed hyperlipidemia IBS (irritable bowel syndrome) Osteogenic sarcoma Surgical History History of biopsy (12/12/21) History of surgery History of surgery History of surgery Family History Father HTN (hypertension) Mother Glaucoma Anxiety Maternal Grandfather No problems noted. Maternal Grandmother Alzheimer's disease Dementia Paternal Grandfather Stroke Paternal Grandmother Stroke Brother No problems noted. 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 Current occupational exposures/hazards: Yes Cognitive needs: No Hearing needs: No Vision needs: No Female Reproductive History Menstrual Age of Menarche: 11 control method: progestin IUCD (Mirena 12/10/19) Total pregnancies: 0 Date of last pap smear: 10/01/23 (neg pap and hpv) Review of Systems Const All systems reviewed & are unremarkable except as noted in HPI and below Reports as per HPI Eyes Reports no additional complaints ENT Reports no additional complaints Card Reports no additional complaints Resp Reports no additional complaints GI Reports as per HPI and Reports no additional complaints Reports as per HPI Musc Reports no additional complaints Skin/Breast Reports as per HPI Neuro Reports no additional complaints Psych Reports no additional complaints Endo Reports no additional complaints Rafita/Lymph Reports no additional complaints Aller/Immun Reports no additional complaints Physical Exam Vital Signs: Last Vital Signs BP 124/78 02/18/25 09:20 BMI result Body Mass Index 23.5 Const General: cooperative, healthy appearing, no acute distress, well developed and alert Orientation/consciousness: patient oriented x3 HEENT Head: Yes normal to inspection Eyes General: appearance normal, both eyes and all related structures Neck Neck: Yes normal visual inspection Thyroid: Thyroid normal Chest Chest palpation & inspection: normal inspection of the chest and other (no puckering, dimpling, peau de orange, retraction, discharge, masses) Breast/axilla inspection: normal inspection of the breasts Breast/axilla palpation: normal palpation of the breasts Resp Effort & Inspection: normal respiratory effort GI Inspection: Yes normal to inspection Palpation (GI): Soft to palpation Rectal Exam - Female: deferred General: Yes bladder normal to palpation External Female Exam: normal external appearance and normal appearance of the urethra Speculum Exam - Vagina: normal appearance of the vagina, normal palpation and normal vaginal discharge Speculum Exam - Cervix: normal appearance of the cervix, normal palpation and Other cervical findings present (IUD strings not found) Bimanual exam- vagina & uterus: normal bimanual exam, normal palpation, uterine size normal, bladder normal to palpation, normal palpation and non-tender Bimanual Exam- Adnexa, other: no masses Skin General skin exam: no rashes or lesions noted Rashes: no rashes Neuro General: patient oriented x3 Cognition (Neuro): normal cognition Extrem General: Yes normal to inspection Psych Attitude: cooperative Thought process: Normal thought process present Results AMB Test Urine AMB Test Urine Negative Last Edit by DAVID Reilly on 02/18/25 09:45 Assessment & Plan Assessment & Plan (1) IUD strings lost: Code(s): T83.32XA - Displacement of intrauterine contraceptive device, initial encounter Category: Medical Qualifiers: Encounter type: initial encounter Qualified Code(s): T83.32XA - Displacement of intrauterine contraceptive device, initial encounter Plan: IUD strings at found at the os. Plan pelvic ultrasound to determine positioning, rule out migration. Ultrasound follow up tele visits unless needs removal. Use condoms for prevention of until IUD positioning has been ascertained. UPT is negative today. The patient expressed understanding and agreement with the plan of care. All of her questions and concerns were addressed to the best of my ability. Total time I personally spent on visit and management today: ?15 minutes. Time spent included review of pertinent office notes in the electronic health record; review of laboratory and imaging results; review of personal family medical history; performing physical exam; discussing diagnosis and plan of care with the patient; documenting the encounter in the EMR. (2) Encounter for well woman exam with routine gynecological exam: Code(s): Z01.419 - Encounter for gynecological examination (general) (routine) without abnormal findings Category: Medical Plan: Discussed: Current recommendations for pap smears per ASCCP guidelines. Breast awareness and periodic breast exams. Maintain a healthy lifestyle including a well balanced diet and routine exercise. Patient verbalizes understanding and agrees to the plan of care. She was given opportunity to ask questions and all questions were answered to the best of my ability. RTO in one year for annual deck cadet examination. Total time I personally spent on visit and management today: ?20 minutes. Time spent included review of pertinent office notes in the electronic health record; review of laboratory and imaging results; review of personal family medical history; performing physical exam; discussing diagnosis and plan of care with the patient; documenting the encounter in the EMR. (3) Stress incontinence: Code(s): N39.3 - Stress incontinence (female) (male) Category: Medical Plan Discussed stress incontinence. Information on pelvic floor exercises provided, reference to national association for incontinence pelvic floor exercises. Handout on pelvic floor therapy. Follow up as needed prn. The patient expressed understanding and agreement with the plan of care. All of her questions and concerns were addressed to the best of my ability. Orders: Orders AMB HCG Urine Test Today T83.32XA - Displacement of intrauterine contraceptive device, initial encounter, Z32.02 - Encounter for test, result negative US pelvic and transvaginal Today T83.32XA - Displacement of intrauterine contraceptive device, initial encounter Coding Level of Care Code Est Pt Level 2 (75478) Est Pt Prev Care 18-39y(58651) Diagnoses Intrauterine contraceptive device threads lost, initial encounter T83.32XA Encounter type: initial encounter Encounter for well woman exam with routine gynecological exam Z01.419 Stress incontinence N39.3
[2025-02-18 09:20] VITALS: BP 124/78; BMI 23.5
--- OUTSIDE RECORDS SUMMARY | 2025-02-18 09:29 | XMS_ITS | Encounter Summary ---
Author Organization [facility] Address [address] [place] [address] Phone Care Team Providers Care Technical Services Analyst Name Role Phone Darlene Kim MD Primary Care Provider Unava ilable Encounter Details Date Type Department Care Team (Late st Contact Info) Description 03/22/2010 Documentation [facility] [address] [place] [address] Family Medicine, Physician [address] [place], [place] [address] Social History Tobacco Use Types Packs/Day Years [...] on filedocumented in this encounter Care Teams Technical Services Analyst Relationship Specialty Start Date End Date Darlene Kim MD PCP - General 05/03/17 documented as of this encounter
== END 2025-02-18 09:49 | disposition home or self-care (01) ==
LOC: HO.HWS 09:08
PROVIDERS: PCP Nurse Practitioner Family; Visit Provider Advanced Practice Midwife
DX: Z01.419 Encounter for gynecological examination (general) (routine) without abnormal findings (principal); T83.32XA Displacement of intrauterine contraceptive device, initial encounter; N39.3 Stress incontinence (female) (male); Z32.02 Encounter for pregnancy test, result negative
CPT/HCPCS: 99212; 99395; 99459

== ENCOUNTER → 2025-02-18 09:08 | Outpatient (BNVA) | payer OTHER, SELFPAY | PROVIDERS: PCP Nurse Practitioner Family; Visit Provider Advanced Practice Midwife | DX: Z01.419 Encounter for gynecological examination (general) (routine) without abnormal findings (principal); T83.32XA Displacement of intrauterine contraceptive device, initial encounter; N39.3 Stress incontinence (female) (male); X58.XXXA Exposure to other specified factors, initial encounter | CPT/HCPCS: 81025; 99212; 99395; 99459 ==

== ENCOUNTER 2025-03-16 08:19 | Outpatient (REF) | payer OTHER, SELFPAY ==
--- NOTE | ~2025-03-16 | US_ITS ---
CLINICAL HISTORY: K82.4 - Cholesterolosis of gallbladder US abdomen limited Comparison: None provided Findings: The visualized pancreas is normal. The aorta and inferior vena cava are normal caliber. The liver is normal in size and echotexture. There is no intrahepatic bile duct dilatation. The common duct is 3 mm in diameter. The gallbladder demonstrates a possible 2 mm polyp. There is no sonographic Locke sign. The main portal vein is antegrade. The right kidney is 10.5 cm in length. No ascites. IMPRESSION: Possible 2 mm polyp. No further follow-up for this would be recommended. This document has been electronically signed by: Akash Hernández MD on 03/16/2025 22:56:11
--- OUTSIDE RECORDS SUMMARY | 2025-03-16 08:28 | XMS_ITS | Encounter Summary ---
Author Organization [facility] Address [address] [place] [place] [phone] Phone Care Team Providers Care Wheat Buyer Name Role Phone Darlene Kim MD Primary Care Provider Unava ilable Encounter Details Date Type Department Care Team (Late st Contact Info) Description 03/22/2010 Documentation [facility] [address] [place] [address] Family Medicine, Physician [address] [place], [place] [address] Social History Tobacco Use Types Packs/Day Years [...] on filedocumented in this encounter Care Teams Wheat Buyer Relationship Specialty Start Date End Date Darlene Kim MD PCP - General 05/03/17 documented as of this encounter
== END 2025-03-16 08:20 | disposition home or self-care (01) ==
LOC: HO.HMGCX 08:19
PROVIDERS: PCP Nurse Practitioner Family; Visit Provider Nurse Practitioner Family
DX: K82.4 Cholesterolosis of gallbladder (principal)
CPT/HCPCS: 76705

== ENCOUNTER → 2025-03-16 08:21 | Outpatient (BNV) | payer OTHER, SELFPAY | PROVIDERS: PCP Nurse Practitioner Family; Visit Provider Radiology Vascular & Interventional Radiology | DX: K82.4 Cholesterolosis of gallbladder (principal) | CPT/HCPCS: 76705 ==

== ENCOUNTER 2025-03-23 14:24 | Outpatient (REF) | payer OTHER, SELFPAY ==
--- NOTE | ~2025-03-23 | US_ITS ---
EXAMINATION: US PELVIS CLINICAL INFORMATION: Evaluate IUD COMPARISON: None available. TECHNIQUE: Ultrasound of the pelvis is performed using both transabdominal and transvaginal transducers along with Doppler. Transvaginal imaging is performed due to inadequate visualization transabdominally. FINDINGS: Uterus: The uterus is anteverted and measures 8.1 x 3.4 x 4.2 cm. The double wall endometrial thickness is 2 mm. Linear echogenic device is seen in the upper uterine canal. The uterus is smooth in contour and has normal myometrial echogenicity. The posterior myometrium upper uterine body, there is a hypoechoic region measuring 9 x 5 x 8 mm consistent with an intramural fibroid Adnexa: Both ovaries are visualized. There is normal color flow to the adnexa. There is no ovarian torsion. There is no pelvic ascites or fluid collection. Right ovary measures 2.9 x 1.6 x 1.6 cm. Left ovary measures 3.9 x 1.8 x 2.2 cm. Follicle is identified US/US pelvic and transvaginal IMPRESSION: Appropriately positioned IUD. 9 mm intramural fibroid in the posterior uterine body, near the fundus Electronically signed by: Lonnie Hastings MD 03/23/2025 05:14 PM EDT
--- OUTSIDE RECORDS SUMMARY | 2025-03-23 15:34 | XMS_ITS | Clinical Summary ---
Author Organization [facility] Address [address] [place] [address] Care Team Providers Care Truck Crane Operator Helper Name Role Phone Berenice Campbell MD Primary Care Provider [phone] Allergies No known active allergies Medications No [...] 01/06/2002, 07/04/1993, Additional history exists Influenza Vaccine (Season Ended) 2025 07/18/2001 Pneumococcal Vaccine Aged Out No long er eligible based on patient's age to complete this topic RSV Ped < 20 months Aged Out No longe r eligible based on patient's age to complete this topic Care Teams Truck Crane Operator Helper Relationship Specialty Start Date End Date Berenice Campbell MD [address] [facility] [place] [phone] PCP - General Sweet Pickled Fruit Maker 12/24/19
--- OUTSIDE RECORDS SUMMARY | 2025-03-23 15:34 | XMS_ITS | Encounter Summary ---
Author Organization [facility] Address [address] [place] [phone] Phone Care Team Providers Care Web Marketing Strategist Name Role Phone Darlene Kim MD Primary Care Provider Unava ilable Encounter Details Date Type Department Care Team (Late st Contact Info) Description 03/22/2010 Documentation [facility] [address] [place] [address] Family Medicine, Physician [address] [place], [place] [id number] Social History Tobacco Use Types Packs/Day Years [...] on filedocumented in this encounter Care Teams Web Marketing Strategist Relationship Specialty Start Date End Date Darlene Kim MD PCP - General 05/03/17 documented as of this encounter
== END 2025-03-23 14:25 | disposition home or self-care (01) ==
LOC: HO.US 14:24
PROVIDERS: PCP Nurse Practitioner Family; Visit Provider Advanced Practice Midwife
DX: T83.32XA Displacement of intrauterine contraceptive device, initial encounter (principal)
CPT/HCPCS: 76830; 76856

== ENCOUNTER → 2025-03-23 14:35 | Outpatient (BNV) | payer OTHER, SELFPAY | PROVIDERS: PCP Nurse Practitioner Family; Visit Provider Radiology Diagnostic Radiology | DX: D25.1 Intramural leiomyoma of uterus (principal); Z30.431 Encounter for routine checking of intrauterine contraceptive device | CPT/HCPCS: 76830; 76856 ==

== ENCOUNTER 2025-04-08 12:43 | Outpatient (AMB) | payer OTHER, SELFPAY ==
--- NOTE | 2025-04-08 12:44 | A.OFFVIS_ITS ---
Intake Visit Reasons: TV ultra sound follow up Salesforce Specialist: Salesforce Specialist Present Allergies No Known Allergies (No Known Allergies*) Allergy (Verified 02/18/25 09:21) Is last menstrual period known: Yes HPI Comments Details: Tele Health Visit Total time I personally spent on visit and management today: 20 minutes. Time spent included review of pertinent office notes in the electronic health record; review of laboratory and imaging results; review of personal family medical history; discussing diagnosis and plan of care with the patient; documenting the encounter in the EMR. Patient presents to discuss: Ultrasound findings history of missing IUD string. Reports pelvic pressure at times. Previous appointment we discussed stress incontinence while exercising and she was to review pelvic floor exercises. [facility] Medical History Fibroid Stress incontinence IUD strings lost Multinodular goiter (nontoxic) Anxiety Mixed hyperlipidemia IBS (irritable bowel syndrome) Osteogenic sarcoma Surgical History History of biopsy (12/12/21) History of surgery History of surgery History of surgery Family History Father HTN (hypertension) Mother Glaucoma Anxiety Maternal Grandfather No problems noted. Maternal Grandmother Alzheimer's disease Dementia Paternal Grandfather Stroke Paternal Grandmother Stroke Brother No problems noted. Social History Housing: House Alcohol intake: current Alcohol intake frequency: holidays/special occasions only Patient Tobacco Use Status: Never used Tobacco e-Cigarette/Vaping Use: Currently Using Second Hand Smoke Exposure: No service: No Current occupational status: employed Current occupation: [employer] Current occupational exposures/hazards: Yes Cognitive needs: No Hearing needs: No Vision needs: No Female Reproductive History Menstrual Age of Menarche: 11 Review of Systems Const All systems reviewed & are unremarkable except as noted in HPI and below Endo Reports no additional complaints Physical Exam Const General: cooperative, healthy appearing and no acute distress Psych Appearance: well kempt Attitude: cooperative Thought process: Normal thought process present Telehealth Telehealth Telehealth [facility] Location of provider rendering services: practice address Location of patient: address on file Patient Identification confirmed using: Name, : Yes Telehealth method: video Patient verbally consented to treatment: Yes Patient verbally consented to billing insurance company: Yes Patient informed of any privacy concerns related to visit: Yes Results Reviewed Results Reviewed: [address] [address] Ultrasound Report Signed Patient: Oliva Hernandez MR#: [id number] : 1990 Acct:[id number] Age/Sex: 34 / F ADM Date: 03/23/25 Loc: HO.US Attending Dr: Jenn Calzada CNM Ordering Physician: Jenn Calzada CNM Date of Service: 03/23/25 Procedure(s): US pelvic and transvaginal Accession Number(s): [id number] cc: Petey Mora WASTE EXAMINER-; Jenn Calzada CNM~ EXAMINATION: US PELVIS CLINICAL INFORMATION: Evaluate IUD COMPARISON: None available. TECHNIQUE: Ultrasound of the pelvis is performed using both transabdominal and transvaginal transducers along with Doppler. Transvaginal imaging is performed due to inadequate visualization transabdominally. FINDINGS: Uterus: The uterus is anteverted and measures 8.1 x 3.4 x 4.2 cm. The double wall endometrial thickness is 2 mm. Linear echogenic device is seen in the upper uterine canal. The uterus is smooth in contour and has normal myometrial echogenicity. The posterior myometrium upper uterine body, there is a hypoechoic region measuring 9 x 5 x 8 mm consistent with an intramural fibroid Adnexa: Both ovaries are visualized. There is normal color flow to the adnexa. There is no ovarian torsion. There is no pelvic ascites or fluid collection. Right ovary measures 2.9 x 1.6 x 1.6 cm. Left ovary measures 3.9 x 1.8 x 2.2 cm. Follicle is identified US/US pelvic and transvaginal IMPRESSION: Appropriately positioned IUD. 9 mm intramural fibroid in the posterior uterine body, near the fundus Electronically signed by: Lonnie Hastings MD 03/23/2025 05:14 PM EDT Dictated By: Lonnie Hastings MD Signed By: <Electronically signed by Lonnie Hastings MD in OV> 03/23/25 1714 DD/ 1441 TD/TT: 03/23/25 1454 [employer] Merchandise: Assessment & Plan Assessment & Plan (1) Fibroid: Code(s): D21.9 - Benign neoplasm of connective and other soft tissue, unspecified Category: Medical Plan: Discussed: Ultrasound findings- IMPRESSION: Appropriately positioned IUD. 9 mm intramural fibroid in the posterior uterine body, near the fundus Counseled re: Leiomyoma: common pelvic neoplasm. Differential diagnosis-may include but not limited to- leiomyosarcoma which is a rare uterine sarcoma 3- 7/100,000, difficult to distinguish from fibroids on ultrasound from uterine sarcoma's. Unlikely any single test will have a highly positive predictive value. Hysterectomy is not recommended for sole purpose of excluding malignant neoplasm. Consult for surgical exploration, medical treatment, other treatments, verses expectant management, pros and cons, risks and benefits. Expectant management follow up in 6 months, then yearly for stability. Patient prefers to proceed with expectant management. Referral to MD if indicated for level of care if indicated Report any AUB, pelvic pressure, bloating, or pain. Follow up pending ultrasound findings. The patient expressed understanding and agreement with the plan of care. All of her questions and concerns were addressed to the best of my ability. (2) Stress incontinence: Code(s): N39.3 - Stress incontinence (female) (male) Category: Medical Plan Discussing pelvic floor coverer referral placed today. The patient expressed understanding and agreement with the plan of care. All of her questions and concerns were addressed to the best of my ability. This note is constructed using voice recognition software. While every effort has been made to ensure accuracy, credit or loans officer errors may have been included. Orders: Orders US pelvic and transvaginal 6 Months D21.9 - Benign neoplasm of connective and other soft tissue, unspecified Referrals Pelvic Trial Court Judge Referral N39.3 - Stress incontinence (female) (male) Coding Level of Care Code Tele Est Pt Level 3 (83355) Diagnoses Fibroid D21.9 Stress incontinence N39.3
--- OUTSIDE RECORDS SUMMARY | 2025-04-08 13:06 | XMS_ITS | Clinical Summary ---
Author Organization [facility] Address [address] [place] [address] Care Team Providers Care Compensator Worker Name Role Phone Berenice Campbell MD Primary Care Provider [phone] Allergies No known active allergies Medications No [...] 07/04/1993, Additional history exists Influenza Vaccine (#1) 2025 07/18/2001 Pneumococcal Vaccine Aged Out No long er eligible based on patient's age to complete this topic RSV Ped < 20 months Aged Out No longe r eligible based on patient's age to complete this topic Care Teams Compensator Worker Relationship Specialty Start Date End Date Berenice Campbell MD [address] [facility] [place] [phone] PCP - General Advertising Assistant Manager 12/24/19
--- OUTSIDE RECORDS SUMMARY | 2025-04-08 13:06 | XMS_ITS | Encounter Summary ---
Author Organization [facility] Address [address] [place] [phone] Phone Care Team Providers Care Customer Technical Services Manager Name Role Phone Darlene Kim MD Primary Care Provider Unava ilable Encounter Details Date Type Department Care Team (Late st Contact Info) Description 03/22/2010 Documentation [facility] [address] [place] [address] Family Medicine, Physician [address] [place], [place] [address] Social History Tobacco Use Types Packs/Day Years [...] on filedocumented in this encounter Care Teams Customer Technical Services Manager Relationship Specialty Start Date End Date Darlene Kim MD PCP - General 05/03/17 documented as of this encounter
== END 2025-04-08 13:11 | disposition home or self-care (01) ==
LOC: HO.HWS 12:43
PROVIDERS: PCP Nurse Practitioner Family; Visit Provider Advanced Practice Midwife
DX: D21.9 Benign neoplasm of connective and other soft tissue, unspecified (principal); N39.3 Stress incontinence (female) (male)
CPT/HCPCS: 99213

== ENCOUNTER 2025-09-02 10:41 | Outpatient (REF) | payer OTHER, SELFPAY ==
[2025-09-02 13:58] LABS: Appearance Urine Clear; Glucose Urine UA Negative (Negative); PH 7.5 (5.0-9.0); Specific Gravity - Urine 1.015 (1.005-1.025); UMIC TRIGGER UACC YES
[2025-09-02 14:20] LABS: MANUAL DIFF FLAG NO
[2025-09-02 14:25] LABS: Hematocrit 43.6 % (37.0-47.0); Hemoglobin 14.4 g/dl (12.0-16.0); Imm Gran Abs Auto 0.01 X10*3/uL (0.00-0.03); Imm Gran Pct Auto 0.2 % (0.0-0.4); Lymphocytes Absolute Auto 2.4 X10*3/uL (1.2-4.9); Mean Corpuscular HGB Conc 33.0 g/dl (31.0-35.0); Mean Corpuscular Hemoglobin 30.9 pg (27.0-33.0); Mean Corpuscular Volume 93.6 fL (80.0-98.0); NRBC Abs Auto 0.000 X10*3/uL (0.0-0.012); NRBC Pct Auto 0.0 /100WBC (0.0-0.2); Platelet Count 353 X10*3/uL (160-400); Red Blood Count 4.66 X10*6/uL (4.20-5.50); White Blood Count 5.5 X10*3/uL (4.8-10.8)
[2025-09-02 14:56] LABS: Alanine Aminotransferase 16 U/L (0-31); Albumin Level 4.8 g/dL (3.5-5.0); Alkaline Phosphatase 50 U/L (39-117); Anion Gap 10 (12-20); Aspartate Amino Transferase 31 U/L (5-31); Blood Urea Nitrogen 15 mg/dL (9-16); Calcium 9.6 mg/dL (8.4-10.2); Carbon Dioxide 29 mmol/L (22-29); Chloride 106 mmol/L (96-108); Cholesterol 177 mg/dL (<200); Estimated Glomerular Filt Rate 60; Ferritin 103 ng/mL (10-122); HDL Cholesterol 58 mg/dL (>40); Iron 140 mcg/dL (30-160); Percent Iron Saturation 57 % (15-50); Potassium 4.0 mmol/L (3.3-5.1); Sodium 141 mmol/L (135-145); Total Iron Binding Capacity 245 mcg/dL (228-428); Total Protein 7.2 g/dL (6.5-8.0); Triglycerides 65 mg/dL (<150); Unsaturated Iron Binding 105 ug/dL
== END 2025-09-02 10:42 | disposition home or self-care (01) ==
LOC: HO.HMGCLDS 10:41
PROVIDERS: PCP Nurse Practitioner Family; Visit Provider Nurse Practitioner Family
DX: Z00.00 Encounter for general adult medical examination without abnormal findings (principal); R74.8 Abnormal levels of other serum enzymes; E83.19 Other disorders of iron metabolism; Z01.84 Encounter for antibody response examination
CPT/HCPCS: 36415; 80053; 80061; 81001; 81003; 82306; 82728; 83540; 84443; 85025; 86015; 86381

== ENCOUNTER 2025-09-07 08:28 | Outpatient (AMB) | payer OTHER, SELFPAY ==
[2025-09-07 08:36] VITALS: BP 124/74; PULSE 77; O2SAT 99; BMI 23.2
--- NOTE | 2025-09-07 08:36 | A.OFFPC_ITS ---
Vital Signs 09/07/25 08:36 Height 5 ft 4 in Weight 135 lb BMI 23.2 BP 124/74 Blood Pressure Location Lt brachial Position Sitting Pulse 77 Pulse Oximetry (%) 99 Oxygen Delivery Method Room Air Intake Visit Reasons: PE Cement Tile Maker Required: No Accompanied by: Self / Same As Patient Allergies No Known Allergies (No Known Allergies*) Allergy (Verified 09/07/25 08:37) Tobacco use date assessed: 09/07/25 Dental Screening Dental Screen Date: 09/07/25 Did you have a dental visit in the last 12 months?: Yes Did you have a dental problem in the last 6 months where you did not have access to dental care?: No Was dental information given to patient?: Patient has dentist HPI PE HPI Details History of Present Illness The patient is a 35-year-old female presenting for a physical examination. Overall, she reports doing quite well. She has a history of a nodular goiter. She has had pre-visit labs performed, which are reported as stable. For her mental health, she sees a therapist and a psychiatrist regularly. Health Maintenance The patient feels well and her vital signs are stable. Her recent lab results that are available are reassuring. She will follow up in one year. Social History - She regularly sees a therapist and a p sychiatrist for her mental health. Review of Systems - General: Reports feeling well overall. - Cardiovascular: Denies chest pain. - Respiratory: Denies shortness of breat h. - Gastrointestinal: Denies abdominal kaylee n, blood in stool, constipation, or diarrhea. - Psychiatric: Denies any suicidal ideat ion or homicidal ideation. Physical Exam General: Cooperative, healthy appearing, comfortable, no acute distress and well developed Orientation: Patient oriented x3 Limitations: No limitations Head: Normal to inspection Ears: Hearing grossly normal bilaterally Nose: Normal external nose present Face and sinus: Normal facial exam Eyes: Appearance normal, both eyes and all related structures Neck: Normal visual inspection and Yes full ROM Respiratory: Normal respiratory effort and able to speak in complete sentences. Clear to auscultation bilaterally Cardiovascular: Regular rate and rhythm. Normal S1 and S2 GI: Normal to inspection. Soft to palpation and nontender Skin: No rashes or lesions noted Neuro: Patient oriented x3 Extremities: Normal to inspection, left knee puffy (baseline) Results - Labs: Recent labs were performed and a re stable, though some results are still pending. Plan 1. Nodular Goiter The patient is due for a follow-up thyroid ultrasound in one year to monitor her nodular goiter. Physical examination today revealed no palpable nodules. 2. physical exam without abnormal findin gs Discussion Notes I discussed with the patient that her vital signs are stable and she reports feeling well. I noted that her recent lab results are stable, although some are still pending. We reviewed that she is due for a follow-up thyroid ultrasound in one year to monitor her known nodular goiter. I have scheduled a follow-up visit with her in one year and advised her to contact me with any questions or concerns. Patient Instructions - You will need to get a thyroid ultraso und in about one year to check on your goiter. - Please schedule a follow-up appointmen t in one year. - Contact the office if you have any fur ther questions or concerns. [facility] Medical History Fibroid Stress incontinence IUD strings lost Multinodular goiter (nontoxic) Anxiety Mixed hyperlipidemia IBS (irritable bowel syndrome) Osteogenic sarcoma Surgical History History of biopsy (12/12/21) History of surgery History of surgery History of surgery Family History Father HTN (hypertension) Mother Glaucoma Anxiety Maternal Grandfather No problems noted. Maternal Grandmother Alzheimer's disease Dementia Paternal Grandfather Stroke Paternal Grandmother Stroke Brother No problems noted. Social History Housing: House Alcohol intake: current Alcohol intake frequency: holidays/special occasions only Patient Tobacco Use Status: Never used Tobacco e-Cigarette/Vaping Use: Currently Using Second Hand Smoke Exposure: No service: No Current occupational status: employed Current occupation: [employer] Current occupational exposures/hazards: Yes Cognitive needs: No Hearing needs: No Vision needs: No Female Reproductive History Menstrual Age of Menarche: 11 Questionnaire PHQ-9 Over the last 2 weeks, how often have you been bothered by any of the following problems? 1. Little interest or pleasure in doing things: several days 2. Feeling down, depressed, or hopeless: several days 3. Trouble falling or staying asleep, or sleeping too much: several days 4. Feeling tired or having little energy: several days 5. Poor appetite or overeating: not at all 6. Feeling bad about yourself - or that you are a failure or have let yourself or your family down: not at all 7. Trouble concentrating on things, such as reading the newspaper or watching television: nearly every day 8. Moving or speaking so slowly that other people could have noticed. Or the opposite - being so fidgety or restless that you have been moving around a lot more than usual: several days 9. Thoughts that you would be better off or of hurting yourself in some way: not at all Total score: 8 Depression Screening Interpretation: Positive Depression Screening Done: Yes 64044 - PHQ-9 Billing: Yes Source: Developed by Drs. Gurmeet Linder, India Gates, Chris Choudhury and colleagues, with an educational ruby from [employer]. Thrive Questionnaire Date Thrive assessed: 08/26/24 I am a: Patient What is your living situation today?: I have a steady place to live Within the past 12 months, did the food you bought not last and you didn't have the money to get more?: Never true Within the past 12 months, did you worry whether your food would run out before you got money to buy more?: Never true Do you have trouble paying for medicines?: No Do you have trouble getting transportation to medical appointments?: No Do you have trouble paying your heating and electricity bill?: No Do you have trouble taking care of your child, family member or friend?: No Do you have trouble with day-to-day activities such as bathing, preparing meals, shopping, managing finances, etc.?: No Are you currently unemployed and looking for a job?: I choose not to answer this question Are you interested in more education?: No Please select the resources that you would like help with: None Currently or been in a relationship where the following occur: No concerns reported THRIVE Score: 0 AUDIT C Alcohol Use Questionnaire (AUDIT-C) 1. How often do you have a drink containing alcohol?: Monthly or less 2. How many drinks containing alcohol do you have on a typical day when you are drinking?: 1 or 2 3. How often do you have six or more drinks on one occasion?: Never Total Score: 1 Score Reviewed/Action Taken: Yes MINA-7 AMB Questionnaire MINA-7 Date MINA - 7 assessed: 09/07/25 Feeling nervous, anxious, or on edge: 3 = Nearly every day Not being able to stop or control worryin = Not at all Worrying too much about different things: 3 = Nearly every day Trouble relaxin = More than half the days Being so restless that it is hard to sit still: 2 = More than half the days Becoming easily annoyed or irritable: 1 = Several days Feeling afraid as if something awful might happen: 0 = Not at all Total MINA-7 score (0-4 normal; 5-9 mild; 10-14 moderate; 15-21 severe): 11 Source: Developed by Drs. Gurmeet Linder, India Gates, Chris Choudhury and colleagues, with an educational ruby from [employer]. MINA-7 Assessment Billing MINA-7 Assessment Tool: MINA-7 Assessment 88527 (denies any si or hi, sees a therapist/psychiatrist) Physical exam (Primary Care) Vital Signs: Last Vital Signs Pulse 77 09/07/25 08:36 BP 124/74 09/07/25 08:36 Pulse Ox 99 09/07/25 08:36 Oxygen Delivery Method Room Air 09/07/25 08:36 BMI result Body Mass Index 23.2 Tobacco/Smoking Status: Tobacco use Status Tobacco use date assessed 09/07/25 09/07/25 08:42 Patient Tobacco Use Status Never used Tobacco 09/07/25 08:42 e-Cigarette/Vaping Use Currently Using 09/07/25 08:42 PHQ-9: PHQ-9 Score PHQ-9: Total score 8 09/07/25 08:43 Depression Screening Interpretation: Positive Thrive Assessment: Date of Thrive Assessment Date Thrive assessed 08/26/24 09/07/25 08:42 Currently or been in a relationship where the following occur: No concerns reported Coding Level of Care Code Est Pt Prev Care 18-39y(43971) Diagnoses Physical exam Z00.00 Additional Codes PHQ-9 - 94748 - PHQ-9 Billing: Yes ([id number]) MINA-7 Assessment Billing - MINA-7 Assessment Tool: MINA-7 Assessment 87275 ([id number]) Assessment & Plan Assessment & Plan (1) Physical exam: Code(s): Z. - Encounter for general adult medical examination without abnormal findings Category: Medical Plan . Orders: Orders Comprehensive [place]. Panel Fast 09/02/25 Z00. - Encounter for general adult medical examination without abnormal findings Vitamin D 25-OH Total 09/02/25 Z00. - Encounter for general adult medical examination without abnormal findings TSH reflex Free T4 09/02/25 Z00.00 - Encounter for general adult medical examination without abnormal findings UA CC w/rflx Micro + Cult 09/02/25 Z00. - Encounter for general adult medical examination without abnormal findings Lipid Panel 09/02/25 Z00.00 - Encounter for general adult medical examination without abnormal findings
--- OUTSIDE RECORDS SUMMARY | 2025-09-07 08:57 | XMS_ITS | Clinical Summary ---
Author Organization [facility] Address [address] [place] [address] Phone Care Team Providers Care Fuel Cell Engineer Name Role Phone Darlene Kim MD Primary Care Provider Unaissa ilable Immunizations Immunization Administration Dates Next Due DTP 07/04/1993, 0,1988,10/12,1988 [...] - - Pulse - - Temperature 36.8 C (98.3 F) 11/16/2010 12:00 AM EST Respiratory Rate - - Oxygen Saturation - - Inhaled Oxygen Concentration - - Weight 64 kg (141 lb) 11/16/2010 12:00 AM EST Height - - Body Mass Index - - Plan of Treatment Health Maintenance Due Date Last Done Comments DTaP,Tdap,and Td Vaccines (7 - Td or Tdap) 02/06/2023 02/06/2013, 01/06/2002, 07/04/1993, Additional history exists Influenza Vaccines (#1) 2025 05/15/20 11, 07/18/2001, 07/18/2001 COVID-19 Vaccine ( season) 2025 HIB Vaccines Completed 02/14/1990 IPV Vaccines Completed [...] age to complete this topic Care Teams Fuel Cell Engineer Relationship Specialty Start Date End Date Darlene Kim MD PCP - General 05/03/17
--- OUTSIDE RECORDS SUMMARY | 2025-09-07 08:57 | XMS_ITS | Encounter Summary ---
Author Organization [facility] Address [address] [place] [phone] Phone Care Team Providers Care Supervisor Assembly And Packing Name Role Phone Darlene Kim MD Primary Care Provider Unava ilable Encounter Details Date Type Department Care Team (Late st Contact Info) Description 03/22/2010 Documentation [facility] [address] [place] [address] Family Medicine, Physician [address] [place], [place] [address] Social History Tobacco Use Types Packs/Day Years [...] on filedocumented in this encounter Care Teams Supervisor Assembly And Packing Relationship Specialty Start Date End Date Darlene Kim MD PCP - General 05/03/17 documented as of this encounter
--- OUTSIDE RECORDS SUMMARY | 2025-09-07 08:57 | XMS_ITS | Encounter Summary ---
Author Organization [facility] Address [address] [place] [phone] Phone Care Team Providers Care Hypoid Gear Generator Name Role Phone Darlene Kim MD Primary Care Provider Unava ilable Encounter Details Date Type Department Care Team (Late st Contact Info) Description 11/17/2010 Documentation [facility] [address] [place] [address] Family Medicine, Physician [address] [place], [place] [id number] Social History Tobacco Use Types Packs/Day Years [...] on filedocumented in this encounter Care Teams Hypoid Gear Generator Relationship Specialty Start Date End Date Darlene Kim MD PCP - General 05/03/17 documented as of this encounter
--- OUTSIDE RECORDS SUMMARY | 2025-09-07 08:57 | XMS_ITS | Clinical Summary ---
Author Organization Former[facility] Prior to 02/20/[address] [place] [id number] Care Team Providers Care Band Teacher Name Role Phone Berenice Campbell MD Primary Care Provider [phone] Allergies No known active allergies Medications No [...] age to complete this topic Care Teams Band Teacher Relationship Specialty Start Date End Date Berenice Campbell MD [address] [facility] ROBEL Burgess [phone] PCP - General Firestop/Containment Worker 12/24/19
--- OUTSIDE RECORDS SUMMARY | 2025-09-07 08:57 | XMS_ITS | Encounter Summary ---
Author Organization [facility] Address [address] [place] [phone] Phone Care Team Providers Care Asic Verification Engineer Name Role Phone Darlene Kim MD Primary Care Provider Unava ilable Encounter Details Date Type Department Care Team (Late st Contact Info) Description 05/09/2017 Conversion Encounter [facility] - [address] [address] Social History Tobacco Use Types Packs/Day Years [...] on filedocumented in this encounter Care Teams Asic Verification Engineer Relationship Specialty Start Date End Date Darlene Kim MD PCP - General 05/03/17 documented as of this encounter
== END 2025-09-07 09:29 | disposition home or self-care (01) ==
LOC: HO.HMCC 08:29
PROVIDERS: PCP Nurse Practitioner Family; Visit Provider Nurse Practitioner Family
DX: Z23 Encounter for immunization (principal); Z00.00 Encounter for general adult medical examination without abnormal findings

== ENCOUNTER → 2025-09-07 08:28 | Outpatient (BNVA) | payer OTHER, SELFPAY | PROVIDERS: PCP Nurse Practitioner Family; Visit Provider Nurse Practitioner Family | DX: Z00.00 Encounter for general adult medical examination without abnormal findings (principal); Z23 Encounter for immunization; E04.2 Nontoxic multinodular goiter | CPT/HCPCS: 90471; 90656; 96127; 99395 ==